=== PATIENT | female | born 1950 | race Caucasian/White ===

== ENCOUNTER → 2016-10-12 | Outpatient (REF) | payer OTHER | LOC: M LAB REF 16:50 | PROVIDERS: ATTEND Physician Assistant | DX: R30.0 Dysuria (principal) ==

== ENCOUNTER → 2016-10-14 | Outpatient (CLI) | payer OTHER ==
[2016-10-14 19:47] LABS: ALBUMIN 3.2 GM/DL (3.2-5.2); ALBUMIN/GLOBULIN RATIO 0.89 (1.00-1.93); ALKALINE PHOSPHATASE 732 U/L (45-117); ALT/SGPT 273 U/L (12-78); AMYLASE 27 U/L (25-115); ANION GAP 6 MEQ/L (8-16); AST/SGOT 132 U/L (15-37); BILIRUBIN,DIRECT 6.2 MG/DL (0.0-0.2); BILIRUBIN,TOTAL 7.3 MG/DL (0.2-1.0); BLOOD UREA NITROGEN 9 MG/DL (7-18); CALCIUM LEVEL 8.5 MG/DL (8.8-10.2); CARBON DIOXIDE LEVEL 30 MEQ/L (21-32); CHLORIDE LEVEL 100 MEQ/L (98-107); CREATININE FOR GFR 0.54 MG/DL (0.55-1.02); GLOMERULAR FILTRATION RATE > 60.0 (>45); GLUCOSE, FASTING 199 MG/DL (80-110); POTASSIUM SERUM 3.3 MEQ/L (3.5-5.1); SODIUM LEVEL 136 MEQ/L (136-145); TOTAL PROTEIN 6.8 GM/DL (6.4-8.2)
== END ==
LOC: M LAB 18:28
PROVIDERS: ATTEND Family Medicine
DX: R17 Unspecified jaundice (principal)

== ENCOUNTER → 2016-10-17 | Outpatient (REF) | payer OTHER ==
[2016-10-17 16:12] LABS: ALBUMIN 3.4 GM/DL (3.2-5.2); ALBUMIN/GLOBULIN RATIO 0.97 (1.00-1.93); BILIRUBIN,DIRECT 4.3 MG/DL (0.0-0.2); BILIRUBIN,TOTAL 5.6 MG/DL (0.2-1.0); TOTAL PROTEIN 6.9 GM/DL (6.4-8.2)
== END ==
LOC: M SFHCPLAZ 12:20
PROVIDERS: ATTEND Family Medicine
DX: E80.6 Other disorders of bilirubin metabolism (principal)

== ENCOUNTER → 2016-10-18 | Outpatient (CLI) | payer OTHER ==
--- NOTE | 2016-10-19 06:11 | REP ---
Clinical: Jaundice. Technique: Real time dunne scale ultrasound examination using curved array transducer. Findings: The liver is increased in echogenicity compatible with fatty infiltration and no obvious focal hepatic lesion identified. Pancreas is incompletely evaluated due to interposed bowel gas. Gallbladder demonstrates cholelithiasis without wall thickening or pericholecystic fluid. No biliary ductal dilatation is appreciated and the common bile duct measures 5.4 mm diameter. Right kidney is normal in reniform shape measuring 12.9 x 5.0 x 4.5 cm without hydronephrosis. No ascites. Impression: Fatty infiltration to the liver without focal hepatic lesion identified. Cholelithiasis. Signed by Richar Carter MD 10/19/2016 06:02 A
== END ==
LOC: M RAD 08:50
PROVIDERS: ATTEND Family Medicine
DX: R17 Unspecified jaundice (principal)

== ENCOUNTER → 2016-11-12 | Outpatient (CLI) | payer OTHER, MEDICARE ==
[2016-11-12 17:35] LABS: ALBUMIN 3.9 GM/DL (3.2-5.2); ALBUMIN/GLOBULIN RATIO 1.15 (1.00-1.93); ALKALINE PHOSPHATASE 205 U/L (45-117); ALT/SGPT 67 U/L (12-78); ANION GAP 6 MEQ/L (8-16); AST/SGOT 35 U/L (15-37); BLOOD UREA NITROGEN 12 MG/DL (7-18); CALCIUM LEVEL 8.8 MG/DL (8.8-10.2); CARBON DIOXIDE LEVEL 32 MEQ/L (21-32); CHLORIDE LEVEL 101 MEQ/L (98-107); CREATININE FOR GFR 0.61 MG/DL (0.55-1.02); GLOMERULAR FILTRATION RATE > 60.0 (>45); GLUCOSE, FASTING 187 MG/DL (80-110); POTASSIUM SERUM 4.8 MEQ/L (3.5-5.1); SODIUM LEVEL 139 MEQ/L (136-145); TOTAL PROTEIN 7.3 GM/DL (6.4-8.2)
== END ==
LOC: M WUC 08:35
PROVIDERS: ATTEND Surgery
DX: R11.0 Nausea (principal); K80.20 Calculus of gallbladder without cholecystitis without obstruction

== ENCOUNTER → 2016-12-26 | Outpatient (REF) | payer OTHER ==
[~2016-12-26] MED LIST: ATOR1TAB19 PO; CALC600T57 PO; DRIS50002 PO; GLIM4TAB PO; HYDR-3713 PO; LEVO25TA5 PO; METF500T13 PO; TELM1TAB PO
[2016-12-26 19:26] LABS: BASO % 0.6 % (0.0-1.0); EOS # 0.4 K/mm3 (0.0-0.50); EOS % 4.2 % (0.0-3.0); LARGE UNSTAINED CELL # 0.2 K/mm3 (0.0-0.4); LARGE UNSTAINED CELL % 1.7 % (0.0-4.0); LYMPH # 2.7 K/mm3 (1.5-4.5); LYMPH % 27.8 % (24.0-44.0); MEAN CORPUSCULAR HEMOGLOBIN 33.1 pg (27.0-33.0); MEAN CORPUSCULAR HGB CONC 34.1 g/dl (32.0-36.5); MEAN CORPUSCULAR VOLUME 97.1 fl (80.0-96.0); MONO # 0.5 K/mm3 (0.0-0.8); MONO % 4.9 % (0.0-5.0); NEUTROPHILS # 5.6 K/mm3 (1.8-7.7); NEUTROPHILS % 60.9 % (36.0-66.0); PLATELET COUNT, AUTOMATED 277 k/mm3 (150-450); RED CELL DISTRIBUTION WIDTH 13.5 % (11.5-14.5); WHITE BLOOD COUNT 9.2 K/mm3 (4.0-10.0)
[2016-12-26 21:25] LABS: ALBUMIN 3.8 GM/DL (3.2-5.2); ALBUMIN/GLOBULIN RATIO 0.97 (1.00-1.93); ALKALINE PHOSPHATASE 148 U/L (45-117); ALT/SGPT 48 U/L (12-78); AMYLASE 39 U/L (25-115); ANION GAP 6 MEQ/L (8-16); AST/SGOT 28 U/L (15-37); BILIRUBIN,TOTAL 0.5 MG/DL (0.2-1.0); BLOOD UREA NITROGEN 12 MG/DL (7-18); CALCIUM LEVEL 9.3 MG/DL (8.8-10.2); CARBON DIOXIDE LEVEL 32 MEQ/L (21-32); CHLORIDE LEVEL 97 MEQ/L (98-107); CREATININE FOR GFR 0.66 MG/DL (0.55-1.02); FREE T4 0.82 NG/DL (0.76-1.46); GLOMERULAR FILTRATION RATE > 60.0 (>45); GLUCOSE, FASTING 374 MG/DL (80-110); POTASSIUM SERUM 4.1 MEQ/L (3.5-5.1); SODIUM LEVEL 135 MEQ/L (136-145); TOTAL PROTEIN 7.7 GM/DL (6.4-8.2)
== END ==
LOC: M SFHCPLAZ 15:23
PROVIDERS: ATTEND Family Medicine
DX: E11.9 Type 2 diabetes mellitus without complications (principal); I10 Essential (primary) hypertension; E03.9 Hypothyroidism, unspecified

== ENCOUNTER → 2017-01-18 | Outpatient (CLI) | payer OTHER ==
--- NOTE | 2017-01-18 17:47 | ECGEPIP ---
Stationary ECG Study [facility] Test Date: 2017-01-18 Pat Name: VIKY ESPINO Department: Room: - Gender: F Lead Process Engineer: : [id number] Requested By: MUNA Castañeda Order Number: [id number] Reading MD: Vijay Lay Measurements Intervals [place] Rate: 72 P: 52 VT: 180 QRS: 9 QRSD: 98 T: 46 QT: 394 QTc: 433 Interpretive Statements SINUS RHYTHM Comparison tracing not on file Electronically Signed On 01-18-2017 17:46:52 EDT by Vijay Lay
== END ==
LOC: M EKG 15:35
PROVIDERS: ATTEND Anesthesiology
DX: Z01.818 Encounter for other preprocedural examination (principal)

== ENCOUNTER 2017-01-24 06:09 | Day surgery (SDC) | payer MEDICARE, OTHER ==
[~2017-01-24] VITALS: Ht 157.5 cm; Wt 88.5 kg
[2017-01-24] MEDS ORDERED: LR 1,000 ML IV SCH ×3 (06:15→09:45)
[2017-01-24] MEDS ORDERED: ceFAZolin SOD 1 GM in D5W MINI-BAG PLUS 50 ML IV ONE (06:15)
[2017-01-24] MEDS ORDERED: LIDOCAINE 1% SDV 5 ML VIAL SQ ONE (06:15)
[2017-01-24] MEDS ORDERED: BUPIVACAINE/EPIN 0.25% 30 ML VIAL As Ordered ONE ×2 (07:18→08:03)
[2017-01-24] MEDS ORDERED: MIDAZOLAM INJ 2 MG/2 ML VIAL (J2250) As Ordered ONE (07:56)
[2017-01-24] MEDS ORDERED: fentaNYL 100 MCG/2 ML INJECTION (J3010) As Ordered ONE (07:56)
[2017-01-24] MEDS ORDERED: PROPOFOL 500 MG/50 ML VIAL As Ordered ONE (07:56)
[2017-01-24] MEDS ORDERED: NEOSTIGMINE 1MG/ML 5 ML SYRINGE (J2710) As Ordered ONE (08:01)
[2017-01-24] MEDS ORDERED: ONDANSETRON 4MG/2ML VIAL (J2405) As Ordered ONE (08:01)
[2017-01-24] MEDS ORDERED: METOCLOPRAMIDE INJ 10MG/2ML VIAL (J2765) As Ordered ONE (08:01)
[2017-01-24] MEDS ORDERED: KETOROLAC 60 MG/2 ML VIAL (J1885) As Ordered ONE (08:01)
[2017-01-24] MEDS ORDERED: dexameTHASONE 4 MG/ML 1ML VIAL (J1100) As Ordered ONE (08:01)
[2017-01-24] MEDS ORDERED: ROCURONIUM BROMIDE 50 MG/5 ML VIAL/SYRINGE As Ordered ONE (08:01)
[2017-01-24] MEDS ORDERED: LIDOCAINE 2% INJ 100 MG/5 ML SDV (FOR ANES.) As Ordered ONE (08:01)
[2017-01-24] MEDS ORDERED: GLYCOPYRROLATE INJ 0.2 MG/ML 2 ML VIAL As Ordered ONE (08:02)
[2017-01-24] MEDS ORDERED: PHENYLephrine HCL 500 MCG/5 ML (100MCG/ML) SYRINGE (J2370) As Ordered ONE (08:09)
[2017-01-24] MEDS ORDERED: ePHEDrine SULFATE 25 MG/5 ML(5MG/ML) SYRINGE As Ordered ONE (08:09)
[2017-01-24] MEDS ORDERED: HYDROmorphone HCL 2 MG/ML 1ML VIAL (J1170) As Ordered ONE (08:51)
[2017-01-24] MEDS ORDERED: PERCOCET 5MG/325MG TAB PO PRN (09:45)
[2017-01-24] MEDS ORDERED: HYDROmorphone HCL 1 MG/ML SYRINGE (J1170) IV PRN (09:45)
[2017-01-24] MEDS ORDERED: NORCO, ANEXSIA 5/325MG TABLET (HYDROcodone/ACETAMINOPHEN) PO PRN (09:45)
[2017-01-24] MEDS ORDERED: MORPHINE 2 MG/ML 1ML SYRINGE IV PRN (09:45)
[2017-01-24] MEDS ORDERED: fentaNYL 100 MCG/2 ML INJECTION (J3010) IV PRN (09:45)
[2017-01-24] MEDS ORDERED: ONDANSETRON 4MG/2ML VIAL (J2405) IV PRN ×2 (09:45)
--- NOTE | 2017-01-24 09:53 | RO ---
DATE OF PROCEDURE: 01/24/2017 PREOPERATIVE DIAGNOSIS: Symptomatic gallstones. POSTOPERATIVE DIAGNOSIS: Symptomatic gallstones. PROCEDURE: Laparoscopic cholecystectomy. SURGEON: Dr. Guicho Thomson [employer] DEVELOPMENT: ANESTHESIA: General endotracheal anesthesia. ESTIMATED BLOOD LOSS: Minimal. FLUIDS: Crystalloid. BRIEF PROCEDURE SUMMARY: The patient was brought to the operating room and was given general anesthesia. After adequate anesthesia and preoperative antibiotics were given, the patient was prepped and draped in the usual sterile fashion. Next, a supraumbilical incision was made with skin knife. Blunt dissection was carried down to fascia. The fascia was grasped with Cheo clamps, elevated and a Veress needle placed into the abdominal cavity and insufflated to 15 mm of pressure. A dilating 10 mm trocar was placed at this time and under direct visualization an epigastric and two lateral trocars were placed. Next, the gallbladder was grasped and retracted superiorly. There were numerous adhesions of the omentum as well as the duodenum up against the neck of the gallbladder which were taken down with hook cautery and some minimal blunt dissection. The neck of the gallbladder was cleared of peritoneum on the anterior service and the lateral surface and dissection continued along the lateral border of the gallbladder, then upon the medial aspect where the cystic artery was well visualized surrounded. A window behind the neck of the gallbladder was created using a combination of blunt and electrocautery dissection on the loose areolar tissue there. Once the cystic duct was well visualized and a critical view of safety was obtained, the cystic duct was clipped proximally and distally times two and transected. The gallbladder was then slowly removed from the gallbladder bed, clipping the cystic artery on the way and transecting this. The gallbladder was removed in its entirety, placed in an EndoCatch bag and brought up to the umbilicus, which had multiple stones within the gallbladder itself, and the gallbladder needed to be opened to crush some of these stones, but despite doing this, the incision at the umbilicus had to be increased enough to allow for a relatively large stone to be removed. Once this was removed, the incision was copiously irrigated and the incision was closed with #0 Vicryl in the fascial layer and all incisions were closed with #4-0 Vicryl. Steri-Strips and a dry sterile dressing was applied. The patient was awakened, extubated and brought to the recovery room awake, alert and hemodynamically stable. Sponge and needle counts correct times two.
[2017-01-24 12:05] VITALS: BP 145/65
== END 2017-01-24 12:45 | disposition home or self-care (01) ==
LOC: M SDC 06:09
PROVIDERS: ATTEND Surgery
DX: K80.20 Calculus of gallbladder without cholecystitis without obstruction (principal); E11.9 Type 2 diabetes mellitus without complications; I10 Essential (primary) hypertension; E78.5 Hyperlipidemia, unspecified; E03.9 Hypothyroidism, unspecified; E04.2 Nontoxic multinodular goiter; K57.32 Diverticulitis of large intestine without perforation or abscess without bleeding; Z79.899 Other long term (current) drug therapy
CPT/HCPCS: 47562; 88304; J0690; J1100; J1170; J1885; J2250; J2370; J2405; J2710; J2765; J3010

== ENCOUNTER → 2017-04-18 | Outpatient (CLI) | payer MEDICARE, OTHER ==
--- NOTE | 2017-04-18 09:49 | REP ---
BILATERAL SCREENING DIGITAL MAMMOGRAM: There are no palpable abnormalities or other breast complaints. The patient states that she/he has not had a clinical breast exam in over a year. Comparisons are 11/15/2011, 07/17/2012, 04/08/2014 and 02/10/2016. The breast parenchyma is moderately dense, unchanged. There are two biopsy marking clips in the left breast, unchanged. There is a microcalcific cluster in the left breast, far posterolaterally. I suspect that the number of calcifications within this cluster has increased over the series of films. There is a microcalcific cluster in the left breast superiorly slightly medial to midline and I suspect the number of calcifications has increased over the series of films. There are no focal suspicious findings in the right breast. IMPRESSION: BIRADS category 0, incomplete. Additional imaging evaluation is needed. The patient should return for magnification views of the microcalcifications in the left breast. The decision for additional views, ultrasound or MRI will be based on these initial follow-up views. This mammogram was interpreted with the aid of an FDA-approved computer-aided detection system. A. Negative x-ray reports should not delay biopsy if a dominant or clinically suspicious mass is present. B. Not all breast s cancers are identified by x-ray. C. Adenosis and dense breasts may obscure an underlying neoplasm. The patient letter M0. Signed by Otto Kendrick MD 04/18/2017 11:41 A
== END ==
LOC: M RAD 08:00
PROVIDERS: ATTEND Family Medicine
DX: Z12.31 Encounter for screening mammogram for malignant neoplasm of breast (principal)

== ENCOUNTER → 2017-05-10 | Outpatient (REF) | payer MEDICARE, OTHER ==
[2017-05-10 12:35] LABS: ALBUMIN 3.9 GM/DL (3.2-5.2); ALBUMIN/GLOBULIN RATIO 1.11 (1.00-1.93); ALKALINE PHOSPHATASE 126 U/L (45-117); ALT/SGPT 32 U/L (12-78); ANION GAP 3 MEQ/L (8-16); AST/SGOT 16 U/L (7-37); BILIRUBIN,TOTAL 0.8 MG/DL (0.2-1.0); BLOOD UREA NITROGEN 11 MG/DL (7-18); CALCIUM LEVEL 9.2 MG/DL (8.8-10.2); CARBON DIOXIDE LEVEL 34 MEQ/L (21-32); CHLORIDE LEVEL 102 MEQ/L (98-107); GLOMERULAR FILTRATION RATE > 60.0 (>45); GLUCOSE, FASTING 155 MG/DL (80-110); POTASSIUM SERUM 4.8 MEQ/L (3.5-5.1); SODIUM LEVEL 139 MEQ/L (136-145); TOTAL PROTEIN 7.4 GM/DL (6.4-8.2)
== END ==
LOC: M SFHCPLAZ 09:47
PROVIDERS: ATTEND Family Medicine
DX: E78.2 Mixed hyperlipidemia (principal)

== ENCOUNTER → 2017-07-04 | Outpatient (REF) | payer MEDICARE, OTHER ==
[2017-07-04 12:50] LABS: TOTAL 25(OH) VITAMIN D 65.8 NG/ML (30.0-100.0); VITAMIN B12 LEVEL 385 PG/ML (247-911)
[2017-07-04 12:51] LABS: PTH INTACT 64.4 PG/ML (14.0-72.0)
[2017-07-04 12:59] LABS: C REACTIVE PROTEIN QUANTITATIV 1.56 MG/DL (0.00-0.30); CHOLESTEROL LEVEL 201 MG/DL (<200); CHOLESTEROL RISK RATIO 3.241 (<5); CPK CREATINE PHOSPHOKINASE 63 U/L (26-192); HDL CHOLESTEROL 62 MG/DL (>40); LDL CHOLESTEROL 108.4 MG/DL (<100); NON-HDL-C 139 MG/DL; TRIGLYCERIDES LEVEL 153 MG/DL (<150)
[2017-07-04 13:24] LABS: ESTIMATED AVERAGE GLUCOSE 174 MG/DL (60-110); HEMOGLOBIN A1c 7.7 %
== END ==
LOC: M SFHCPLAZ 09:15
DX: E78.2 Mixed hyperlipidemia (principal); E11.9 Type 2 diabetes mellitus without complications; E55.9 Vitamin D deficiency, unspecified
CPT/HCPCS: 82550

== ENCOUNTER → 2017-07-06 | Outpatient (REF) | payer MEDICARE, OTHER ==
[2017-07-06 18:44] LABS: BASO % 0.4 % (0.0-1.0); EOS # 0.4 10^3/uL (0.0-0.50); EOS % 3.8 % (0.0-3.0); HEMATOCRIT 40.9 % (36.0-47.0); HEMOGLOBIN 13.7 g/dl (12.0-16.0); IMMATURE GRANULOCYTE % 0.3 % (0-0); LYMPH # 3.3 10^3/uL (1.5-4.5); LYMPH % 33.8 % (24.0-44.0); MEAN CORPUSCULAR HEMOGLOBIN 31.7 pg (27.0-33.0); MEAN CORPUSCULAR HGB CONC 33.5 g/dl (32.0-36.5); MEAN CORPUSCULAR VOLUME 94.7 fl (80.0-96.0); MONO # 0.7 10^3/uL (0.0-0.8); MONO % 7.4 % (0.0-5.0); NEUTROPHILS # 5.3 10^3/uL (1.8-7.7); NEUTROPHILS % 54.3 % (36.0-66.0); PLATELET COUNT, AUTOMATED 306 10^3/uL (150-450); RED BLOOD COUNT 4.32 10^6/uL (4.00-5.40); RED CELL DISTRIBUTION WIDTH 13.1 % (11.5-14.5); WHITE BLOOD COUNT 9.7 10^3/uL (4.0-10.0)
[2017-07-06 19:03] LABS: INR 0.95; PROTHROMBIN TIME 12.8 SECONDS (12.4-14.5)
[2017-07-06 19:04] LABS: PARTIAL THROMBOPLASTIN TIME 40.2 SECONDS (26.8-37.9)
[2017-07-06 19:07] LABS: ALBUMIN 4.1 GM/DL (3.2-5.2); ALBUMIN/GLOBULIN RATIO 1.11 (1.00-1.93); ALKALINE PHOSPHATASE 134 U/L (45-117); ALT/SGPT 29 U/L (12-78); ANION GAP 7 MEQ/L (8-16); AST/SGOT 15 U/L (7-37); BILIRUBIN,TOTAL 0.5 MG/DL (0.2-1.0); BLOOD UREA NITROGEN 14 MG/DL (7-18); CALCIUM LEVEL 9.5 MG/DL (8.8-10.2); CARBON DIOXIDE LEVEL 33 MEQ/L (21-32); CHLORIDE LEVEL 101 MEQ/L (98-107); CREATININE FOR GFR 0.55 MG/DL (0.55-1.02); FREE T4 0.87 NG/DL (0.76-1.46); GLOMERULAR FILTRATION RATE > 60.0 (>45); GLUCOSE, FASTING 102 MG/DL (80-110); MAGNESIUM LEVEL 2.1 MG/DL (1.8-2.4); POTASSIUM SERUM 4.2 MEQ/L (3.5-5.1); SODIUM LEVEL 141 MEQ/L (136-145); TOTAL PROTEIN 7.8 GM/DL (6.4-8.2)
== END ==
LOC: M SFHCPLAZ 15:22
DX: E11.9 Type 2 diabetes mellitus without complications (principal); E03.9 Hypothyroidism, unspecified; I10 Essential (primary) hypertension; K76.0 Fatty (change of) liver, not elsewhere classified
CPT/HCPCS: 83735

== ENCOUNTER → 2017-07-25 | Outpatient (REF) | payer MEDICARE, OTHER ==
[2017-07-25 13:57] LABS: INR 0.99; PROTHROMBIN TIME 13.2 SECONDS (12.4-14.5)
[2017-07-27 00:07] LABS: CA 27.29 24.9 U/mL (0.0-38.6)
== END ==
LOC: M LAB REF 12:48
DX: C50.919 Malignant neoplasm of unspecified site of unspecified female breast (principal); Z79.01 Long term (current) use of anticoagulants
CPT/HCPCS: 86300

== ENCOUNTER → 2017-08-08 | Outpatient (CLI) | payer MEDICARE, OTHER ==
[~2017-08-08] MED LIST changes: -ATOR1TAB19 PO; -CALC600T57 PO; -DRIS50002 PO; -GLIM4TAB PO; -HYDR-3713 PO; +ISOVUE-370 76% 100ML VIAL (Q9967) As Ordered; -LEVO25TA5 PO; -METF500T13 PO; -TELM1TAB PO
== END ==
LOC: M RAD 08:53
DX: C50.411 Malignant neoplasm of upper-outer quadrant of right female breast (principal); E07.9 Disorder of thyroid, unspecified; N28.1 Cyst of kidney, acquired; Z98.82 Breast implant status
CPT/HCPCS: Q9967

== ENCOUNTER → 2017-08-10 | Outpatient (CLI) | payer MEDICARE, OTHER | LOC: M ONCR 09:13 | DX: C50.911 Malignant neoplasm of unspecified site of right female breast (principal) | CPT/HCPCS: G0463 ==

== ENCOUNTER 2017-09-05 14:00 | Outpatient (RCR) | payer MEDICARE, OTHER | END 2017-09-23 | LOC: M ONCR 14:00 | DX: C50.411 Malignant neoplasm of upper-outer quadrant of right female breast (principal) | CPT/HCPCS: 77300 ==

== ENCOUNTER → 2017-09-05 | Outpatient (CLI) | payer MEDICARE, OTHER ==
[2017-09-05 15:08] LABS: HEMATOCRIT 37.9 % (36.0-47.0); HEMOGLOBIN 12.5 g/dl (12.0-16.0); MEAN CORPUSCULAR HEMOGLOBIN 30.6 pg (27.0-33.0); MEAN CORPUSCULAR VOLUME 92.7 fl (80.0-96.0); PLATELET COUNT, AUTOMATED 365 10^3/uL (150-450); RED BLOOD COUNT 4.09 10^6/uL (4.00-5.40); RED CELL DISTRIBUTION WIDTH 13.3 % (11.5-14.5); WHITE BLOOD COUNT 9.7 10^3/uL (4.0-10.0)
== END ==
LOC: M RAD 14:05
DX: C50.911 Malignant neoplasm of unspecified site of right female breast (principal)
CPT/HCPCS: 85027

== ENCOUNTER → 2017-09-12 | Outpatient (CLI) | payer MEDICARE, OTHER | LOC: M WHC 08:59 | DX: C50.919 Malignant neoplasm of unspecified site of unspecified female breast (principal); M85.852 Other specified disorders of bone density and structure, left thigh; M85.851 Other specified disorders of bone density and structure, right thigh; M85.88 Other specified disorders of bone density and structure, other site | CPT/HCPCS: 77080 ==

== ENCOUNTER 2017-09-25 11:43 | Outpatient (RCR) | payer MEDICARE, OTHER | END 2017-10-23 | LOC: M ONCR 11:43 | DX: C50.411 Malignant neoplasm of upper-outer quadrant of right female breast (principal) | CPT/HCPCS: 77336 ==

== ENCOUNTER 2017-10-24 11:19 | Outpatient (RCR) | payer MEDICARE, OTHER | END 2017-11-23 | LOC: M ONCR 11:19 | DX: C50.411 Malignant neoplasm of upper-outer quadrant of right female breast (principal) | CPT/HCPCS: 77336 ==

== ENCOUNTER → 2017-12-19 | Outpatient (CLI) | payer MEDICARE, OTHER | LOC: M ONCR 09:01 | DX: Z08 Encounter for follow-up examination after completed treatment for malignant neoplasm (principal); Z85.3 Personal history of malignant neoplasm of breast; Z92.3 Personal history of irradiation | CPT/HCPCS: G0463 ==

== ENCOUNTER → 2018-01-09 | Outpatient (REF) | payer MEDICARE, OTHER ==
[2018-01-09 11:58] LABS: BASO % 0.5 % (0.0-1.0); EOS # 0.3 10^3/uL (0.0-0.50); EOS % 4.8 % (0.0-3.0); HEMOGLOBIN 12.9 g/dl (12.0-15.5); IMMATURE GRANULOCYTE % 0.3 % (0-3.0); LYMPH % 14.5 % (24.0-44.0); MEAN CORPUSCULAR HEMOGLOBIN 30.9 pg (27.0-33.0); MEAN CORPUSCULAR HGB CONC 33.1 g/dl (32.0-36.5); MEAN CORPUSCULAR VOLUME 93.3 fl (80.0-96.0); MONO # 0.5 10^3/uL (0.0-0.8); NEUTROPHILS # 4.7 10^3/uL (1.8-7.7); NEUTROPHILS % 71.9 % (36.0-66.0); PLATELET COUNT, AUTOMATED 287 10^3/uL (150-450); RED BLOOD COUNT 4.18 10^6/uL (4.00-5.40); RED CELL DISTRIBUTION WIDTH 13.7 % (11.5-14.5); WHITE BLOOD COUNT 6.6 10^3/uL (4.0-10.0)
[2018-01-09 12:44] LABS: ALBUMIN 3.8 GM/DL (3.2-5.2); ALKALINE PHOSPHATASE 164 U/L (45-117); ALT/SGPT 44 U/L (12-78); ANION GAP 10 MEQ/L (8-16); AST/SGOT 30 U/L (7-37); BILIRUBIN,TOTAL 0.8 MG/DL (0.2-1.0); BLOOD UREA NITROGEN 14 MG/DL (7-18); CALCIUM LEVEL 9.2 MG/DL (8.8-10.2); CARBON DIOXIDE LEVEL 30 MEQ/L (21-32); CHLORIDE LEVEL 100 MEQ/L (98-107); CREATININE FOR GFR 0.66 MG/DL (0.55-1.30); FREE T4 0.87 NG/DL (0.76-1.46); GLOMERULAR FILTRATION RATE > 60.0 (>45); GLUCOSE, FASTING 207 MG/DL (70-100); MAGNESIUM LEVEL 1.7 MG/DL (1.8-2.4); POTASSIUM SERUM 4.3 MEQ/L (3.5-5.1); SODIUM LEVEL 140 MEQ/L (136-145); TOTAL PROTEIN 7.6 GM/DL (6.4-8.2)
[2018-01-09 12:53] LABS: TOTAL 25(OH) VITAMIN D 67.3 NG/ML (30.0-100.0)
[2018-01-09 12:54] LABS: VITAMIN B12 LEVEL 329 PG/ML (247-911)
[2018-01-09 13:27] LABS: ESTIMATED AVERAGE GLUCOSE 183 MG/DL (60-110)
== END ==
LOC: M SFHCPLAZ 10:41
DX: E11.9 Type 2 diabetes mellitus without complications (principal); E03.9 Hypothyroidism, unspecified; I10 Essential (primary) hypertension; D75.89 Other specified diseases of blood and blood-forming organs; E55.9 Vitamin D deficiency, unspecified
CPT/HCPCS: 83735

== ENCOUNTER → 2018-01-11 | Outpatient (CLI) | payer MEDICARE, OTHER ==
[~2018-01-11] MED LIST changes: +GASTROGRAFIN SOLUTION 30ML (Q9963) As Ordered
== END ==
LOC: M RAD 12:26
DX: K43.2 Incisional hernia without obstruction or gangrene (principal); E04.2 Nontoxic multinodular goiter; K43.9 Ventral hernia without obstruction or gangrene; K57.90 Diverticulosis of intestine, part unspecified, without perforation or abscess without bleeding
CPT/HCPCS: Q9963

== ENCOUNTER → 2018-01-12 | Outpatient (CLI) | payer MEDICARE, OTHER | LOC: M RAD 10:35 | DX: K11.21 Acute sialoadenitis (principal) | CPT/HCPCS: 76536 ==

== ENCOUNTER → 2018-01-17 | Outpatient (CLI) | payer MEDICARE, OTHER ==
[~2018-01-17] MED LIST changes: -GASTROGRAFIN SOLUTION 30ML (Q9963) As Ordered
== END ==
LOC: M RAD 14:08
DX: R91.8 Other nonspecific abnormal finding of lung field (principal)
CPT/HCPCS: Q9967

== ENCOUNTER → 2018-02-19 | Outpatient (REF) | payer MEDICARE, OTHER ==
[2018-02-19 16:01] LABS: BASO % 0.5 % (0.0-1.0); EOS # 0.2 10^3/uL (0.0-0.50); EOS % 2.8 % (0.0-3.0); IMMATURE GRANULOCYTE % 0.4 % (0-3.0); LYMPH # 1.2 10^3/uL (1.5-4.5); LYMPH % 14.2 % (24.0-44.0); MEAN CORPUSCULAR HEMOGLOBIN 30.7 pg (27.0-33.0); MEAN CORPUSCULAR HGB CONC 33.3 g/dl (32.0-36.5); MEAN CORPUSCULAR VOLUME 92.2 fl (80.0-96.0); MONO # 0.5 10^3/uL (0.0-0.8); NEUTROPHILS # 6.5 10^3/uL (1.8-7.7); NEUTROPHILS % 76.1 % (36.0-66.0); PLATELET COUNT, AUTOMATED 313 10^3/uL (150-450); RED BLOOD COUNT 4.23 10^6/uL (4.00-5.40); RED CELL DISTRIBUTION WIDTH 13.7 % (11.5-14.5); WHITE BLOOD COUNT 8.5 10^3/uL (4.0-10.0)
[2018-02-19 16:15] LABS: ALBUMIN 3.8 GM/DL (3.2-5.2); ALBUMIN/GLOBULIN RATIO 0.97 (1.00-1.93); ALKALINE PHOSPHATASE 143 U/L (45-117); ALT/SGPT 42 U/L (12-78); ANION GAP 10 MEQ/L (8-16); AST/SGOT 21 U/L (7-37); BILIRUBIN,TOTAL 0.5 MG/DL (0.2-1.0); BLOOD UREA NITROGEN 12 MG/DL (7-18); C REACTIVE PROTEIN QUANTITATIV 2.09 MG/DL (0.00-0.30); CALCIUM LEVEL 9.1 MG/DL (8.8-10.2); CARBON DIOXIDE LEVEL 25 MEQ/L (21-32); CHLORIDE LEVEL 102 MEQ/L (98-107); CREATININE FOR GFR 0.61 MG/DL (0.55-1.30); GLOMERULAR FILTRATION RATE > 60.0 (>45); GLUCOSE, FASTING 218 MG/DL (70-100); SODIUM LEVEL 137 MEQ/L (136-145); TOTAL PROTEIN 7.7 GM/DL (6.4-8.2); URIC ACID 4.3 MG/DL (2.6-6.0)
[2018-02-19 19:03] LABS: ERYTHROCYTE SEDIMENTATION RATE 63 mm/hr (0-30)
[2018-02-22 00:10] LABS: ANTINUCLEAR ANTIBODIES DIRECT Negative (Negative)
[2018-02-22 00:10] LABS: CYCLIC CITRULLINATED PEPTIDE 16 units (0-19)
== END ==
LOC: M SFHCPLAZ 12:56
DX: M10.041 Idiopathic gout, right hand (principal)
CPT/HCPCS: 84550

== ENCOUNTER → 2018-03-06 | Outpatient (REF) | payer MEDICARE, OTHER ==
[2018-03-06 11:56] LABS: BASO # 0.1 10^3/uL (0.0-0.2); BASO % 0.8 % (0.0-1.0); EOS # 0.3 10^3/uL (0.0-0.50); EOS % 5.2 % (0.0-3.0); HEMATOCRIT 40.5 % (36.0-47.0); HEMOGLOBIN 13.3 g/dl (12.0-15.5); IMMATURE GRANULOCYTE % 0.3 % (0-3.0); LYMPH # 1.2 10^3/uL (1.5-4.5); MEAN CORPUSCULAR HEMOGLOBIN 30.7 pg (27.0-33.0); MEAN CORPUSCULAR HGB CONC 32.8 g/dl (32.0-36.5); MEAN CORPUSCULAR VOLUME 93.5 fl (80.0-96.0); MONO # 0.5 10^3/uL (0.0-0.8); MONO % 7.1 % (0.0-5.0); NEUTROPHILS # 4.3 10^3/uL (1.8-7.7); NEUTROPHILS % 67.6 % (36.0-66.0); PLATELET COUNT, AUTOMATED 273 10^3/uL (150-450); RED BLOOD COUNT 4.33 10^6/uL (4.00-5.40); RED CELL DISTRIBUTION WIDTH 13.7 % (11.5-14.5); WHITE BLOOD COUNT 6.3 10^3/uL (4.0-10.0)
[2018-03-06 12:01] LABS: HEMATOCRIT 40.5 % (36.0-47.0)
[2018-03-06 12:32] LABS: ESTIMATED AVERAGE GLUCOSE 177 MG/DL (60-110); HEMOGLOBIN A1c 7.8 %
[2018-03-06 12:58] LABS: ALKALINE PHOSPHATASE 134 U/L (45-117); ALT/SGPT 60 U/L (12-78); ANION GAP 6 MEQ/L (8-16); AST/SGOT 33 U/L (7-37); BILIRUBIN,TOTAL 0.6 MG/DL (0.2-1.0); BLOOD UREA NITROGEN 13 MG/DL (7-18); C REACTIVE PROTEIN QUANTITATIV 1.27 MG/DL (0.00-0.30); CALCIUM LEVEL 9.6 MG/DL (8.8-10.2); CARBON DIOXIDE LEVEL 31 MEQ/L (21-32); CHLORIDE LEVEL 103 MEQ/L (98-107); CREATININE FOR GFR 0.59 MG/DL (0.55-1.30); GLOMERULAR FILTRATION RATE > 60.0 (>45); GLUCOSE, FASTING 133 MG/DL (70-100); PHOSPHORUS LEVEL 4.2 MG/DL (2.5-4.9); POTASSIUM SERUM 4.5 MEQ/L (3.5-5.1); PTH INTACT 44.2 PG/ML (18.5-88.0); SODIUM LEVEL 140 MEQ/L (136-145); TOTAL 25(OH) VITAMIN D 76.8 NG/ML (30.0-100.0); TOTAL PROTEIN 7.9 GM/DL (6.4-8.2)
[2018-03-06 13:52] LABS: ALBUMIN/GLOBULIN RATIO 1.03 (1.00-1.93)
[2018-03-06 15:55] LABS: PRETREATED FOLATE FOR RBCFOL 13.9 NG/ML; RBC FOLATE 720.7 NG/ML (280-791)
[2018-03-08 00:08] LABS: Lyme Disease IgG/IgM Antibodie <0.91 ISR (0.00-0.90); Lyme Disease IgM Ab Quantitati <0.80 index (0.00-0.79)
[2018-03-09 00:07] LABS: CYCLIC CITRULLINATED PEPTIDE 10 units (0-19)
== END ==
LOC: M SFHCPLAZ 08:23
DX: L03.011 Cellulitis of right finger (principal); E55.9 Vitamin D deficiency, unspecified; E78.2 Mixed hyperlipidemia; E11.9 Type 2 diabetes mellitus without complications; E53.8 Deficiency of other specified B group vitamins
CPT/HCPCS: 84443

== ENCOUNTER → 2018-05-08 | Outpatient (REF) | payer MEDICARE, OTHER ==
[2018-05-08 12:50] LABS: APPEARANCE, URINE CLEAR (CLEAR); BACTERIA, URINE AUTO NEGATIVE (NEGATIVE); BILIRUBIN, URINE AUTO NEGATIVE (NEGATIVE); BLOOD, URINE BLOOD NEGATIVE (NEGATIVE); COLOR, URINE YELLOW (YELLOW); GLUCOSE, URINE (UA) AUTO NEGATIVE (NEGATIVE); KETONE, URINE AUTO NEGATIVE (NEGATIVE); LEUKOCYTE ESTERASE, URINE AUTO NEGATIVE (NEGATIVE); MUCUS, URINE SMALL (NEGATIVE); NITRITE, URINE AUTO NEGATIVE (NEGATIVE); PROTEIN, URINE AUTO NEGATIVE (NEGATIVE); RBC, URINE AUTO 3 /HPF (0-3); SPECIFIC GRAVITY URINE AUTO 1.013 (1.002-1.035); SQUAMOUS EPITHELIAL CELL UR AU 0 /HPF (0-6); UROBILINOGEN, URINE AUTO 0.2 mg/dL (0.0-2.0); WBC, URINE AUTO 1 /HPF (0-3)
[2018-05-08 13:20] LABS: CREATININE, URINE 51.7 MG/DL; MAU/CREAT RATIO 106.3 MCG/MG (0.0-30.0)
[2018-05-08 13:32] LABS: C REACTIVE PROTEIN QUANTITATIV 1.84 MG/DL (0.00-0.30); CHOLESTEROL LEVEL 182 MG/DL (<200); CHOLESTEROL RISK RATIO 3.033 (<5); CPK CREATINE PHOSPHOKINASE 63 U/L (26-192); FREE T4 0.78 NG/DL (0.76-1.46); HDL CHOLESTEROL 60 MG/DL (>40); LDL CHOLESTEROL 90 MG/DL (<100); NON-HDL-C 122 MG/DL; TRIGLYCERIDES LEVEL 160 MG/DL (<150)
[2018-05-08 13:45] LABS: ESTIMATED AVERAGE GLUCOSE 186 MG/DL (60-110); HEMOGLOBIN A1c 8.1 %
== END ==
LOC: M SFHCPLAZ 08:35
DX: E11.9 Type 2 diabetes mellitus without complications (principal)
CPT/HCPCS: 82550

== ENCOUNTER → 2018-06-13 | Outpatient (CLI) | payer MEDICARE, OTHER ==
[~2018-06-13] MED LIST changes: +ATOR1TAB19 PO; +CALC600T57 PO; +CELE100C PO; +DRIS50003 PO; +GLIM4TAB PO; +HYDR-3713 PO; -ISOVUE-370 76% 100ML VIAL (Q9967) As Ordered; +LEVO25TA5 PO; +METF500T13 PO; +METF750T PO; +TELM1TAB PO
--- NOTE | 2018-06-14 10:43 | RADONC ---
RADIATION ONCOLOGY FOLLOWUP NOTE DATE: 06/13/2018 CHART NUMBER: [id number] DIAGNOSIS: Right breast cancer. STAGE: I B, [id number], grade 2, ER positive, VT positive, HER2/guevara negative. ECOG PERFORMANCE STATUS: Zero. FOLLOWUP NOTE: Ms. Gonzalez is very pleasant, 68-year-old white female with the diagnosis of a stage I B, [id number], moderately differentiated invasive lobular carcinoma of the right breast who is presenting to us today for routine followup visit 7 months post completion of external beam radiation therapy. The patient presents today reporting that she is doing quite well with no complaints at this time related to her radiation therapy or disease. She has no chest wall or bone pain. REVIEW OF SYSTEMS: The patient's review of systems is noncontributory. Denies nausea, vomiting, fevers, chills, night sweats, diplopia, headaches, anxiety or depression, anorexia, weight loss, visual disturbances, chest pain, urinary or bowel difficulties, bone pain, or neurological problems. PHYSICAL EXAMINATION: The patient is a well-developed, well-nourished, 68-year-old white female, in no acute distress. HEENT exam is normocephalic, atraumatic. Extraocular movements are intact. There is no palpable cervical, supraclavicular, infraclavicular, axillary, or inguinal lymphadenopathy present. Lungs are clear to auscultation and percussion. Heart has a regular rate and rhythm. Abdomen is benign with no hepatosplenomegaly, masses, or tenderness. Chest wall examination reveals bilateral mastectomy scars present. Her expanders are in place. There is no evidence of nodularity ulceration or recurrent disease. Skeletal examination reveals no tenderness to pressure or percussion of the bony skeleton. Extremities reveal no clubbing, cyanosis, or edema. Neurologic exam is grossly intact, as is the remainder of the physical examination. ASSESSMENT: The patient is clinically ANISH at this time. She is being followed and managed closely by her medical oncologists. She is scheduled for breast reconstruction in June and she is being followed by her surgeons and plastic surgeons. In light of this, I have discharged her from our followup except on a p.r.n. basis. cc: MD Gretel Rizvi MD Geoffrey Mikita, MD Ryan Tyler, MD
== END ==
LOC: M ONCR 09:31
PROVIDERS: ATTEND Radiology Radiation Oncology
DX: C50.911 Malignant neoplasm of unspecified site of right female breast (principal)

== ENCOUNTER → 2018-09-24 | Outpatient (REF) | payer MEDICARE, OTHER ==
[~2018-09-24] MED LIST changes: +JANU100T PO; +LETR2.5T2 PO
[2018-09-24 11:01] LABS: APPEARANCE, URINE CLEAR (CLEAR); BACTERIA, URINE AUTO NEGATIVE (NEGATIVE); BILIRUBIN, URINE AUTO NEGATIVE (NEGATIVE); BLOOD, URINE BLOOD 1+ (NEGATIVE); COLOR, URINE YELLOW (YELLOW); GLUCOSE, URINE (UA) AUTO NEGATIVE (NEGATIVE); KETONE, URINE AUTO NEGATIVE (NEGATIVE); LEUKOCYTE ESTERASE, URINE AUTO 3+ (NEGATIVE); NITRITE, URINE AUTO NEGATIVE (NEGATIVE); PROTEIN, URINE AUTO NEGATIVE (NEGATIVE); RBC, URINE AUTO 4 /HPF (0-3); SPECIFIC GRAVITY URINE AUTO 1.014 (1.002-1.035); SQUAMOUS EPITHELIAL CELL UR AU 0 /HPF (0-6); UROBILINOGEN, URINE AUTO 0.2 mg/dL (0.0-2.0); WBC, URINE AUTO 28 /HPF (0-3)
[2018-09-24 11:15] LABS: BASO % 0.5 % (0.0-1.0); EOS # 0.3 10^3/uL (0.0-0.50); EOS % 4.3 % (0.0-3.0); HEMATOCRIT 40.2 % (36.0-47.0); HEMOGLOBIN 13.4 g/dl (12.0-15.5); LYMPH # 1.2 10^3/uL (1.5-4.5); LYMPH % 16.1 % (24.0-44.0); MEAN CORPUSCULAR HEMOGLOBIN 30.6 pg (27.0-33.0); MEAN CORPUSCULAR HGB CONC 33.3 g/dl (32.0-36.5); MEAN CORPUSCULAR VOLUME 91.8 fl (80.0-96.0); MONO # 0.5 10^3/uL (0.0-0.8); NEUTROPHILS # 5.3 10^3/uL (1.8-7.7); NEUTROPHILS % 71.8 % (36.0-66.0); PLATELET COUNT, AUTOMATED 249 10^3/uL (150-450); RED BLOOD COUNT 4.38 10^6/uL (4.00-5.40); WHITE BLOOD COUNT 7.4 10^3/uL (4.0-10.0)
[2018-09-24 11:50] LABS: CHOLESTEROL RISK RATIO 2.842 (<5); FREE T4 0.95 NG/DL (0.76-1.46); THYROID STIMULATING HORMONE 3.42 uIU/ML (0.358-3.740)
[2018-09-24 13:02] LABS: CREATININE, URINE 72.3 MG/DL; MALB URINE SIEMENS 93.6 MG/L; MAU/CREAT RATIO 129.4 MCG/MG (0.0-30.0)
[2018-09-24 14:28] LABS: HEMOGLOBIN A1c 8.7 %
== END ==
LOC: M SFHCPLAZ 08:13
PROVIDERS: ATTEND Family Medicine
DX: E53.8 Deficiency of other specified B group vitamins (principal); E78.2 Mixed hyperlipidemia; E03.9 Hypothyroidism, unspecified; E11.9 Type 2 diabetes mellitus without complications

== ENCOUNTER → 2019-02-22 | Outpatient (REF) | payer MEDICARE, OTHER ==
[~2019-02-22] MED LIST changes: -GLIM4TAB PO; +GLIM4TAB5 PO; +JARD1TAB3 PO; -METF750T PO; +METF750T36 PO
[2019-02-22 10:34] LABS: BASO % 0.4 % (0.0-1.0); EOS # 0.3 10^3/uL (0.0-0.50); EOS % 4.7 % (0.0-3.0); HEMATOCRIT 42.4 % (36.0-47.0); HEMOGLOBIN 13.6 g/dl (12.0-15.5); LYMPH # 1.4 10^3/uL (1.5-4.5); LYMPH % 19.3 % (24.0-44.0); MEAN CORPUSCULAR HEMOGLOBIN 30.6 pg (27.0-33.0); MEAN CORPUSCULAR HGB CONC 32.1 g/dl (32.0-36.5); MEAN CORPUSCULAR VOLUME 95.3 fl (80.0-96.0); MONO # 0.5 10^3/uL (0.0-0.8); MONO % 7.7 % (0.0-5.0); NEUTROPHILS # 4.8 10^3/uL (1.8-7.7); NEUTROPHILS % 67.6 % (36.0-66.0); PLATELET COUNT, AUTOMATED 264 10^3/uL (150-450); RED BLOOD COUNT 4.45 10^6/uL (4.00-5.40)
[2019-02-22 10:56] LABS: HEMOGLOBIN A1c 8.9 %
[2019-02-22 11:05] LABS: ALBUMIN 3.9 GM/DL (3.2-5.2); ALT/SGPT 34 U/L (12-78); BILIRUBIN,TOTAL 0.7 MG/DL (0.2-1.0); BLOOD UREA NITROGEN 17 MG/DL (7-18); CALCIUM LEVEL 9.1 MG/DL (8.8-10.2); CARBON DIOXIDE LEVEL 30 MEQ/L (21-32); CHLORIDE LEVEL 104 MEQ/L (98-107); GLOMERULAR FILTRATION RATE > 60.0 (>45); GLUCOSE, FASTING 120 MG/DL (70-100); POTASSIUM SERUM 4.2 MEQ/L (3.5-5.1); SODIUM LEVEL 141 MEQ/L (136-145); TOTAL PROTEIN 7.3 GM/DL (6.4-8.2)
[2019-02-22 11:12] LABS: PTH INTACT 54.5 PG/ML (18.5-88.0); TOTAL 25(OH) VITAMIN D 95.8 NG/ML (30.0-100.0)
== END ==
LOC: M SFHCPLAZ 08:06
PROVIDERS: ATTEND Family Medicine
DX: E53.8 Deficiency of other specified B group vitamins (principal); K76.0 Fatty (change of) liver, not elsewhere classified; E11.9 Type 2 diabetes mellitus without complications; E55.9 Vitamin D deficiency, unspecified

== ENCOUNTER → 2019-03-21 | Outpatient (CLI) | payer MEDICARE, OTHER ==
[~2019-03-21] MED LIST changes: +GLIM4TAB PO; -GLIM4TAB5 PO; +PROHANCE 279.3MG/ML 15ML VIAL (A9576) As Ordered ONE; +PROHANCE 279.3MG/ML 5ML VIAL (A9576) As Ordered ONE
--- NOTE | 2019-03-21 14:43 | REP ---
MRI cervical spine without and with IV contrast: History: Breast carcinoma, evaluate for metastases. New C4-5 dermatomal numbness. No comparison cervical spine imaging. Technique: Sagittal and axial T1 and T2-weighted scans are acquired in the usual fashion with and without fat saturation. Sequences include spin echo, turbo spin-echo, and STIR imaging sequences. MRI findings: There is slight straightening. Cervical vertebral body heights are preserved. Alignment is normal. There is no evidence to suggest skeletal metastatic disease. There is fairly advanced degenerative spondylosis. There is significant multilevel cervical cord extrinsic compression at each level in the cervical spine from C3-4 through C6-7. This is seen to be due to a combination of multilevel disc protrusions and calcification and thickening of the posterior longitudinal ligament. There is also a contribution from ligamentum flavum hypertrophy dorsally at each of these levels. There is no abnormal contrast enhancement to suggest leptomeningeal metastasis. No intramedullary enhancement is seen. There is some intramedullary cord T2 signal intensity increase at the C3-4 level which may be an early myelomalacia change. At C2-3, there is a small central disc protrusion which does not compress the cord. At C3-4, axial and sagittal images demonstrate a large central disc protrusion with low T1 and low T2 signal consistent with calcification producing severe cord compression and central canal stenosis. There is bilateral uncovertebral spurring. At C4-5, there is a large left posterior focal disc producing severe cord compression. The disc protrusion appears to be calcified. There is mild uncovertebral spurring on the right and severe neural foraminal narrowing on the left at C4-5 due to discogenic spurring. At C5-C6, there is a moderate sized left posterior focal disc protrusion which appears to be calcified producing moderate cord compression. There is bilateral uncovertebral spurring at C5-6 left greater than right. At C6-C7, there is a fairly large right posterior focal disc protrusion producing moderate cord compression. No neural foraminal narrowing is seen at 6-7. The C7-T1 level shows no definite disc abnormality. Impression: There is severe degenerative spondylosis changes with multiple large calcified disc protrusions producing significant compression of the cervical cord at each level from C3-4 through C6-7, as discussed in detail above. There is no evidence to suggest metastatic disease. The calcified nature of the disc protrusions and the degree of posterior longitudinal ligament calcification and thickening may be further assessed if clinically warranted by CT study of the cervical spine. There is an ill-defined area of intramedullary T2 edema in the cervical cord at the C3-4 level which may be a early myelomalacia change. Electronically Signed by Trent Trevino MD 03/21/2019 03:11 P
== END ==
LOC: M RAD 11:11
PROVIDERS: ATTEND Internal Medicine Medical Oncology
DX: R20.0 Anesthesia of skin (principal); Z85.3 Personal history of malignant neoplasm of breast; M50.21 Other cervical disc displacement, high cervical region; M50.221 Other cervical disc displacement at C4-C5 level; M50.222 Other cervical disc displacement at C5-C6 level; M50.223 Other cervical disc displacement at C6-C7 level; M47.812 Spondylosis without myelopathy or radiculopathy, cervical region
CPT/HCPCS: 72156; A9576

== ENCOUNTER → 2019-08-15 | Outpatient (CLI) | payer MEDICARE, OTHER ==
[~2019-08-15] MED LIST changes: -GLIM4TAB PO; +GLIM4TAB5 PO; -PROHANCE 279.3MG/ML 15ML VIAL (A9576) As Ordered ONE; -PROHANCE 279.3MG/ML 5ML VIAL (A9576) As Ordered ONE; -TELM1TAB PO; +TELM1TAB35 PO
[2019-08-15 09:55] LABS: BLOOD UREA NITROGEN 16 MG/DL (7-18); CALCIUM LEVEL 9.5 MG/DL (8.8-10.2); CARBON DIOXIDE LEVEL 30 MEQ/L (21-32); CHLORIDE LEVEL 104 MEQ/L (98-107); CREATININE FOR GFR 0.57 MG/DL (0.55-1.30); GLOMERULAR FILTRATION RATE > 60.0 (>45); GLUCOSE, FASTING 138 MG/DL (70-100); POTASSIUM SERUM 4.7 MEQ/L (3.5-5.1); SODIUM LEVEL 139 MEQ/L (136-145)
== END ==
LOC: M PLALAB 08:51
PROVIDERS: ATTEND Physician Assistant
DX: M54.2 Cervicalgia (principal)

== ENCOUNTER → 2019-08-26 | Outpatient (CLI) | payer MEDICARE, OTHER ==
[2019-08-26 13:27] LABS: ALBUMIN 4.2 GM/DL (3.2-5.2); ALT/SGPT 37 U/L (12-78); BILIRUBIN,TOTAL 0.6 MG/DL (0.2-1.0); BLOOD UREA NITROGEN 16 MG/DL (7-18); C REACTIVE PROTEIN QUANTITATIV 1.25 MG/DL (0.00-0.30); CARBON DIOXIDE LEVEL 30 MEQ/L (21-32); CHLORIDE LEVEL 105 MEQ/L (98-107); CHOLESTEROL LEVEL 149 MG/DL (<200); CHOLESTEROL RISK RATIO 2.483 (<5); CPK CREATINE PHOSPHOKINASE 60 U/L (26-192); CREATININE FOR GFR 0.52 MG/DL (0.55-1.30); FREE T4 0.91 NG/DL (0.76-1.46); GLOMERULAR FILTRATION RATE > 60.0 (>45); GLUCOSE, FASTING 124 MG/DL (70-100); HDL CHOLESTEROL 60 MG/DL (>40); LDL CHOLESTEROL 61 MG/DL (<100); NON-HDL-C 89 MG/DL; POTASSIUM SERUM 4.1 MEQ/L (3.5-5.1); SODIUM LEVEL 140 MEQ/L (136-145); TOTAL PROTEIN 7.5 GM/DL (6.4-8.2); TRIGLYCERIDES LEVEL 141 MG/DL (<150)
[2019-08-26 13:53] LABS: HEMOGLOBIN A1c 7.7 %
== END ==
LOC: M PLALAB 08:19
PROVIDERS: ATTEND Family Medicine
DX: M47.812 Spondylosis without myelopathy or radiculopathy, cervical region (principal); E03.9 Hypothyroidism, unspecified; E11.9 Type 2 diabetes mellitus without complications

== ENCOUNTER → 2019-10-15 | Outpatient (REF) | payer MEDICARE, OTHER ==
[2019-10-15 13:41] LABS: BASO % 0.4 % (0.0-1.0); EOS # 0.3 10^3/uL (0.0-0.5); EOS % 3.7 % (0.0-3.0); HEMATOCRIT 43.8 % (36.0-47.0); HEMOGLOBIN 14.2 g/dl (12.0-15.5); LYMPH # 1.6 10^3/uL (1.5-5.0); MEAN CORPUSCULAR HEMOGLOBIN 31.3 pg (27.0-33.0); MEAN CORPUSCULAR HGB CONC 32.4 g/dl (32.0-36.5); MEAN CORPUSCULAR VOLUME 96.5 fl (80.0-96.0); MONO # 0.5 10^3/uL (0.0-0.8); MONO % 6.6 % (0.0-5.0); NEUTROPHILS # 4.5 10^3/uL (1.5-8.5); PLATELET COUNT, AUTOMATED 261 10^3/uL (150-450); RED BLOOD COUNT 4.54 10^6/uL (4.00-5.40); WHITE BLOOD COUNT 6.8 10^3/uL (4.0-10.0)
[2019-10-15 13:46] LABS: INR 1.03; PROTHROMBIN TIME 13.2 SECONDS (11.8-14.0)
[2019-10-15 14:03] LABS: ALBUMIN 4.2 GM/DL (3.2-5.2); ALT/SGPT 32 U/L (12-78); BILIRUBIN,TOTAL 0.6 MG/DL (0.2-1.0); BLOOD UREA NITROGEN 15 MG/DL (7-18); CALCIUM LEVEL 9.8 MG/DL (8.8-10.2); CARBON DIOXIDE LEVEL 29 MEQ/L (21-32); CHLORIDE LEVEL 103 MEQ/L (98-107); CREATININE FOR GFR 0.58 MG/DL (0.55-1.30); FREE T4 0.98 NG/DL (0.76-1.46); GLOMERULAR FILTRATION RATE > 60.0 (>45); GLUCOSE, FASTING 130 MG/DL (70-100); POTASSIUM SERUM 4.7 MEQ/L (3.5-5.1); SODIUM LEVEL 138 MEQ/L (136-145); TOTAL PROTEIN 7.9 GM/DL (6.4-8.2)
== END ==
LOC: M SFHCPLAZ 12:25
PROVIDERS: ATTEND Family Medicine
DX: Z01.818 Encounter for other preprocedural examination (principal); E11.9 Type 2 diabetes mellitus without complications; E03.9 Hypothyroidism, unspecified; K76.0 Fatty (change of) liver, not elsewhere classified

== ENCOUNTER → 2019-10-15 | Outpatient (CLI) | payer MEDICARE, OTHER | LOC: M WHC 09:04 | PROVIDERS: ATTEND Internal Medicine Medical Oncology | DX: Z01.818 Encounter for other preprocedural examination (principal); M85.88 Other specified disorders of bone density and structure, other site; Z79.811 Long term (current) use of aromatase inhibitors; E11.9 Type 2 diabetes mellitus without complications; E03.9 Hypothyroidism, unspecified; K76.0 Fatty (change of) liver, not elsewhere classified | CPT/HCPCS: 36415; 77080; 80053; 83036; 84439; 84443; 85025; 85046; 85610; 85730; 87641; 93005; G0463 ==

== ENCOUNTER → 2019-11-29 | Outpatient (CLI) | payer MEDICARE, OTHER ==
[~2019-11-29] MED LIST changes: +ATOR1TAB21 PO; +CELE1CAP9 PO; +MAGN250T7 PO; +SYNT50TA PO
--- NOTE | 2019-11-29 13:27 | REP ---
REASON FOR EXAM: Disc disease. Previous posterior fixation. COMPARISON: None. Posterior fixation is seen bilaterally from C3 to C7. There is disc space narrowing, which is severe, at C4-5 and C5-6. More moderate disc space narrowing is seen at all other levels. Today's exam is limited by AP and lateral views alone. IMPRESSION: Chronic changes, as described above. Electronically Signed by Jefferson Menendez DO 11/29/2019 05:03 P
== END ==
LOC: M RAD 08:52
PROVIDERS: ATTEND Physician Assistant
DX: G95.89 Other specified diseases of spinal cord (principal)

== ENCOUNTER → 2020-01-06 | Outpatient (CLI) | payer MEDICARE, OTHER ==
[2020-01-06 14:26] LABS: APPEARANCE, URINE CLEAR (CLEAR); BACTERIA, URINE AUTO NEGATIVE (NEGATIVE); BILIRUBIN, URINE AUTO NEGATIVE (NEGATIVE); BLOOD, URINE BLOOD NEGATIVE (NEGATIVE); COLOR, URINE YELLOW (YELLOW); GLUCOSE, URINE (UA) AUTO 3+ mg/dL (NEGATIVE); KETONE, URINE AUTO NEGATIVE (NEGATIVE); LEUKOCYTE ESTERASE, URINE AUTO NEGATIVE (NEGATIVE); NITRITE, URINE AUTO NEGATIVE (NEGATIVE); PROTEIN, URINE AUTO NEGATIVE (NEGATIVE); RBC, URINE AUTO 0 /HPF (0-3); SPECIFIC GRAVITY URINE AUTO 1.032 (1.002-1.035); SQUAMOUS EPITHELIAL CELL UR AU 0 /HPF (0-6); UROBILINOGEN, URINE AUTO 0.2 mg/dL (0.0-2.0); WBC, URINE AUTO 0 /HPF (0-3)
[2020-01-06 14:37] LABS: BASO % 0.6 % (0.0-1.0); EOS # 0.3 10^3/uL (0.0-0.5); EOS % 4.8 % (0.0-3.0); HEMATOCRIT 42.6 % (36.0-47.0); HEMOGLOBIN 13.4 g/dl (12.0-15.5); LYMPH # 1.6 10^3/uL (1.5-5.0); LYMPH % 24.1 % (24.0-44.0); MEAN CORPUSCULAR HEMOGLOBIN 30.9 pg (27.0-33.0); MEAN CORPUSCULAR HGB CONC 31.5 g/dl (32.0-36.5); MEAN CORPUSCULAR VOLUME 98.2 fl (80.0-96.0); MONO # 0.5 10^3/uL (0.0-0.8); NEUTROPHILS # 4.3 10^3/uL (1.5-8.5); NEUTROPHILS % 63.2 % (36.0-66.0); PLATELET COUNT, AUTOMATED 262 10^3/uL (150-450); RED BLOOD COUNT 4.34 10^6/uL (4.00-5.40); WHITE BLOOD COUNT 6.7 10^3/uL (4.0-10.0)
[2020-01-06 14:59] LABS: ALBUMIN 3.8 GM/DL (3.2-5.2); ALT/SGPT 32 U/L (12-78); BILIRUBIN,TOTAL 0.7 MG/DL (0.2-1.0); BLOOD UREA NITROGEN 15 MG/DL (7-18); CALCIUM LEVEL 9.1 MG/DL (8.8-10.2); CARBON DIOXIDE LEVEL 29 MEQ/L (21-32); CHLORIDE LEVEL 105 MEQ/L (98-107); CREATININE FOR GFR 0.57 MG/DL (0.55-1.30); GLOMERULAR FILTRATION RATE > 60.0 (>45); GLUCOSE, FASTING 135 MG/DL (70-100); SODIUM LEVEL 141 MEQ/L (136-145); TOTAL PROTEIN 7.2 GM/DL (6.4-8.2)
[2020-01-06 15:32] LABS: MALB URINE SIEMENS 19.7 MG/L; MAU/CREAT RATIO 26.6 MCG/MG (0.0-30.0)
[2020-01-06 16:08] LABS: HEMOGLOBIN A1c 8.2 %
== END ==
LOC: M PLALAB 09:21
PROVIDERS: ATTEND Family Medicine
DX: I10 Essential (primary) hypertension (principal); E11.9 Type 2 diabetes mellitus without complications

== ENCOUNTER → 2020-01-13 | Outpatient (CLI) | payer MEDICARE, OTHER ==
--- NOTE | 2020-01-13 10:13 | REP ---
Clinical: Pain. Technique: AP, lateral, swimmers views of the cervical spine. Comparison: 11/29/2019. Findings: Evidence for prior laminectomy and posterior fixation spanning C3 - C7 which appears relatively stable as compared to prior examination. Underlying osteopenia and advanced multilevel degenerative changes are again noted. Prevertebral soft tissues are normal. Impression: No significant change from prior examination. Electronically Signed by Richar Carter MD 01/13/2020 10:05 A
== END ==
LOC: M RAD 09:16
PROVIDERS: ATTEND Physician Assistant
DX: M47.12 Other spondylosis with myelopathy, cervical region (principal)

== ENCOUNTER → 2020-03-16 | Outpatient (REF) | payer MEDICARE, OTHER | LOC: M SFHCPLAZ 12:57 | PROVIDERS: ATTEND Physician Assistant | DX: R31.9 Hematuria, unspecified (principal) ==

== ENCOUNTER → 2020-03-26 | Outpatient (REF) | payer MEDICARE, OTHER | LOC: M SFHCPLAZ 17:06 | PROVIDERS: ATTEND Physician Assistant | DX: R30.0 Dysuria (principal); R31.9 Hematuria, unspecified ==

== ENCOUNTER → 2020-06-30 | Outpatient (REF) | payer MEDICARE, OTHER ==
[~2020-06-30] MED LIST changes: +FARX1TAB3 PO; +VITA50005 PO
[2020-06-30 14:11] LABS: CHOLESTEROL RISK RATIO 3.241 (<5); FREE T4 0.93 NG/DL (0.76-1.46); THYROID STIMULATING HORMONE 2.53 uIU/ML (0.358-3.740)
[2020-06-30 14:36] LABS: TOTAL 25(OH) VITAMIN D 79.1 NG/ML (30.0-100.0)
[2020-06-30 14:37] LABS: PTH INTACT 52.3 PG/ML (18.5-88.0)
[2020-06-30 14:43] LABS: HEMOGLOBIN A1c 8.3 %
== END ==
LOC: M PLALAB 09:14
PROVIDERS: ATTEND Family Medicine
DX: E04.2 Nontoxic multinodular goiter (principal); E11.9 Type 2 diabetes mellitus without complications; E78.2 Mixed hyperlipidemia; E55.9 Vitamin D deficiency, unspecified; Z79.899 Other long term (current) drug therapy

== ENCOUNTER → 2020-10-15 | Outpatient (CLI) | payer MEDICARE, OTHER ==
--- NOTE | 2020-10-15 12:10 | DEXAMM ---
INDICATION: HX BREASST CA,OSTEOPENIA. COMPARISON: Comparison densitometry study 15 October 2019, 12 September 2017, and 14 June 2005.. TECHNIQUE: Bone density was measured using dual-energy x-ray absorptionmetry (DEXA). FINDINGS: AP SPINE L1-L4 BMD 1.158 g/cm2 Young Adult T-Score -0.3 Age Matched Z-Score 1.4. LT FEMUR, TOTAL BMD 0.881 g/cm2 Young Adult T-Score -1.0 Age Matched Z-Score 0.4. LT NECK BMD 0.782 g/cm2 Young Adult T-Score -1.8 Age Matched Z-Score -0.2. RT FEMUR, TOTAL BMD 0.872 g/cm2 Young Adult T-Score -1.1 Age Matched Z-Score 0.4. RT NECK BMD 0.760 g/cm2 Young Adult T-Score -2.0 Age Matched Z-Score -0.3. IMPRESSION: There is normal bone density of the spine. There is low bone density of the left hip. There is low bone density of the right hip. The density of the spine has increased 1.0% since the initial exam on June 14, 2005. The density of the spine increased 1.0% since most recent exam on October 14, 2020. The density of the left hip has decreased 10.8% since initial exam on June 14, 2005. The density of the left hip has decreased 2.5% since most recent exam on October 14, 2020. The density of the right hip has decreased 11.7% since the initial exam on June 14, 2005. The density of the right hip has decreased 3.6% since the most recent exam on October 14, 2020. FOLLOW-UP: Recommendation for the next bone density exam: 2 years. <Electronically signed by Ronald Trevino > 10/15/20 [id number]
== END ==
LOC: M WHC 10:10
PROVIDERS: ATTEND Internal Medicine Medical Oncology
DX: Z85.3 Personal history of malignant neoplasm of breast (principal)

== ENCOUNTER → 2020-11-12 | Outpatient (REF) | payer MEDICARE, OTHER ==
[~2020-11-12] MED LIST changes: +B-122500 PO; +COVI100V IM
[2020-11-12 13:33] LABS: BASO % 0.6 % (0.0-1.0); EOS # 0.3 10^3/uL (0.0-0.5); EOS % 4.9 % (0.0-3.0); HEMATOCRIT 43.3 % (36.0-47.0); HEMOGLOBIN 13.5 g/dl (12.0-15.5); LYMPH # 1.5 10^3/uL (1.5-5.0); LYMPH % 24.4 % (24.0-44.0); MEAN CORPUSCULAR HEMOGLOBIN 30.4 pg (27.0-33.0); MEAN CORPUSCULAR HGB CONC 31.2 g/dl (32.0-36.5); MEAN CORPUSCULAR VOLUME 97.5 fl (80.0-96.0); MONO # 0.5 10^3/uL (0.0-0.8); MONO % 7.6 % (2.0-8.0); NEUTROPHILS # 3.8 10^3/uL (1.5-8.5); NEUTROPHILS % 62.2 % (36.0-66.0); PLATELET COUNT, AUTOMATED 242 10^3/uL (150-450); RED BLOOD COUNT 4.44 10^6/uL (4.00-5.40); WHITE BLOOD COUNT 6.2 10^3/uL (4.0-10.0)
[2020-11-12 14:06] LABS: ALT/SGPT 27 U/L (12-78); BILIRUBIN,TOTAL 0.6 MG/DL (0.2-1.0); BLOOD UREA NITROGEN 18 MG/DL (7-18); CALCIUM LEVEL 9.3 MG/DL (8.8-10.2); CARBON DIOXIDE LEVEL 31 MEQ/L (21-32); CHLORIDE LEVEL 105 MEQ/L (98-107); FERRITIN 260 NG/ML (8-252); FREE T4 0.84 NG/DL (0.76-1.46); GLOMERULAR FILTRATION RATE > 60.0 (>45); GLUCOSE, FASTING 117 MG/DL (70-100); POTASSIUM SERUM 4.6 MEQ/L (3.5-5.1); SODIUM LEVEL 140 MEQ/L (136-145); TOTAL PROTEIN 7.4 GM/DL (6.4-8.2)
[2020-11-12 14:08] LABS: VITAMIN B12 LEVEL 333 PG/ML (247-911)
== END ==
LOC: M PLALAB 10:22
PROVIDERS: ATTEND Family Medicine
DX: E53.8 Deficiency of other specified B group vitamins (principal); E11.9 Type 2 diabetes mellitus without complications; E03.9 Hypothyroidism, unspecified

== ENCOUNTER 2020-12-01 11:47 | Outpatient (CLI) | payer MEDICARE, OTHER ==
[~2020-12-01] VITALS: Ht 157.5 cm; Wt 88.9 kg
[~2020-12-01 11:47] MED LIST changes: +ZOLEDRONIC ACID 4 MG in IV 1 EA IV ONE
[2020-12-01 12:22] VITALS: BP 178/85
[2020-12-01 12:35] VITALS: BP 140/71
== END 2020-12-01 12:35 | disposition home or self-care (01) ==
LOC: M INFU 11:47
PROVIDERS: ATTEND Family Medicine
DX: M85.80 Other specified disorders of bone density and structure, unspecified site (principal)
CPT/HCPCS: 96365; J3489

== ENCOUNTER → 2021-03-22 | Outpatient (CLI) | payer MEDICARE, OTHER ==
[~2021-03-22] MED LIST changes: +ERGO500029 PO; -VITA50005 PO; -ZOLEDRONIC ACID 4 MG in IV 1 EA IV ONE
[2021-03-22 13:43] LABS: BASO # 0.1 10^3/uL (0.0-0.2); BASO % 0.6 % (0.0-1.0); EOS # 0.3 10^3/uL (0.0-0.5); EOS % 3.9 % (0.0-3.0); HEMATOCRIT 44.4 % (36.0-47.0); HEMOGLOBIN 14.2 g/dl (12.0-15.5); LYMPH # 1.7 10^3/uL (1.5-5.0); LYMPH % 21.1 % (24.0-44.0); MEAN CORPUSCULAR HEMOGLOBIN 30.7 pg (27.0-33.0); MEAN CORPUSCULAR VOLUME 95.9 fl (80.0-96.0); MONO # 0.5 10^3/uL (0.0-0.8); MONO % 6.7 % (2.0-8.0); NEUTROPHILS # 5.4 10^3/uL (1.5-8.5); NEUTROPHILS % 67.3 % (36.0-66.0); PLATELET COUNT, AUTOMATED 270 10^3/uL (150-450); RED BLOOD COUNT 4.63 10^6/uL (4.00-5.40)
[2021-03-22 14:15] LABS: HEMOGLOBIN A1c 6.7 %
[2021-03-22 14:19] LABS: ALT/SGPT 27 U/L (12-78); BILIRUBIN,TOTAL 0.7 MG/DL (0.2-1.0); BLOOD UREA NITROGEN 13 MG/DL (7-18); CALCIUM LEVEL 9.1 MG/DL (8.8-10.2); CARBON DIOXIDE LEVEL 32 MEQ/L (21-32); CHLORIDE LEVEL 105 MEQ/L (98-107); CHOLESTEROL LEVEL 167 MG/DL (<200); CREATININE FOR GFR 0.54 MG/DL (0.55-1.30); GLOMERULAR FILTRATION RATE > 60.0 (>39); GLUCOSE, FASTING 96 MG/DL (70-100); HDL CHOLESTEROL 53 MG/DL (>40); LDL CHOLESTEROL 74 MG/DL (<100); NON-HDL-C 114 MG/DL; NT-PRO BNP 23 PG/ML (<125); POTASSIUM SERUM 4.7 MEQ/L (3.5-5.1); PTH INTACT 76.7 PG/ML (18.5-88.0); SODIUM LEVEL 141 MEQ/L (136-145); TOTAL 25(OH) VITAMIN D 89.4 NG/ML (30.0-100.0); TOTAL PROTEIN 7.6 GM/DL (6.4-8.2); TRIGLYCERIDES LEVEL 200 MG/DL (<150); VITAMIN B12 LEVEL 622 PG/ML (247-911)
[2021-03-22 14:20] LABS: MALB URINE SIEMENS 22.8 MG/L; MAU/CREAT RATIO 31.6 MCG/MG (0.0-30.0)
== END ==
LOC: M PLALAB 09:28
PROVIDERS: ATTEND Family Medicine
DX: E11.9 Type 2 diabetes mellitus without complications (principal); E53.8 Deficiency of other specified B group vitamins; I10 Essential (primary) hypertension; E55.9 Vitamin D deficiency, unspecified; Z79.899 Other long term (current) drug therapy

== ENCOUNTER 2021-06-23 00:01 | Emergency (ER) | payer MEDICARE, OTHER ==
[~2021-06-23] VITALS: Ht 157.5 cm; Wt 84.1 kg
[2021-06-23 02:22] LABS: BASO % 0.4 % (0.0-1.0); EOS # 0.4 10^3/uL (0.0-0.5); EOS % 3.9 % (0.0-3.0); HEMOGLOBIN 14.1 g/dl (12.0-15.5); LYMPH # 1.8 10^3/uL (1.5-5.0); LYMPH % 19.3 % (24.0-44.0); MEAN CORPUSCULAR HEMOGLOBIN 30.9 pg (27.0-33.0); MEAN CORPUSCULAR HGB CONC 32.8 g/dl (32.0-36.5); MEAN CORPUSCULAR VOLUME 94.3 fl (80.0-96.0); MONO # 0.7 10^3/uL (0.0-0.8); MONO % 7.7 % (2.0-8.0); NEUTROPHILS # 6.4 10^3/uL (1.5-8.5); NEUTROPHILS % 68.5 % (36.0-66.0); PLATELET COUNT, AUTOMATED 278 10^3/uL (150-450); RED BLOOD COUNT 4.56 10^6/uL (4.00-5.40); WHITE BLOOD COUNT 9.3 10^3/uL (4.0-10.0)
--- NOTE | 2021-06-23 03:23 | REPVR ---
PROCEDURE INFORMATION: Exam: XR Chest Exam date and time: 06/23/2021 1:51 AM Age: 71 years old Clinical indication: Pain; Other: Un specified; Additional info: Chest pain TECHNIQUE: Imaging protocol: XR of the chest. Views: 1 view. COMPARISON: CT Chest with contrast 01/17/2018 2:14 PM FINDINGS: Lungs: Clear. No consolidation. Pleural spaces: No pleural effusion. No pneumothorax. Heart/Mediastinum: Unremarkable. No cardiomegaly. Bones/joints: Unremarkable. Soft tissues: Surgical clips are noted in both breasts. IMPRESSION: No acute findings. Electronically signed by: Kartik Razo On 06/23/2021 03:22:31 AM
[2021-06-23 03:33] LABS: BLOOD UREA NITROGEN 16 MG/DL (7-18); CALCIUM LEVEL 9.2 MG/DL (8.8-10.2); CARBON DIOXIDE LEVEL 25 MEQ/L (21-32); CHLORIDE LEVEL 108 MEQ/L (98-107); CREATININE FOR GFR 0.55 MG/DL (0.55-1.30); GLOMERULAR FILTRATION RATE > 60.0 (>39); GLUCOSE, FASTING 136 MG/DL (70-100); POTASSIUM SERUM 4.1 MEQ/L (3.5-5.1); SODIUM LEVEL 141 MEQ/L (136-145)
[2021-06-23 03:37] LABS: CK-MB VALUE MASS < 1.0 NG/ML (<3.6); CPK CREATINE PHOSPHOKINASE 71 U/L (26-192); MB/CK RELATIVE INDEX 1.41 (< OR =4)
[2021-06-23] MEDS ORDERED: KETOROLAC 30 MG/ML 1ML VIAL IV ONE (03:55)
[2021-06-23 04:46] LABS: CK-MB VALUE MASS < 1.0 NG/ML (<3.6); CPK CREATINE PHOSPHOKINASE 118 U/L (26-192); MB/CK RELATIVE INDEX 0.85 (< OR =4)
--- NOTE | 2021-06-23 04:47 | REPVR ---
PROCEDURE INFORMATION: Exam: US Duplex Left Upper Extremity Veins, Limited Exam date and time: 06/23/2021 4:39 AM Age: 71 years old Clinical indication: Pain; Arm, upper; Left; Additional info: Left bicep pain, HX of CA TECHNIQUE: Imaging protocol: Real-time Duplex ultrasound of the Left Upper Extremity with 2-D dunne scale, color Doppler flow and spectral waveform analysis with image documentation. Limited exam focused on the left upper extremity veins. COMPARISON: CT Chest with contrast 01/17/2018 2:14 PM FINDINGS: Left deep veins: Unremarkable. Axillary and brachial veins are patent throughout without thrombus. Normal Doppler waveforms. Normal compressibility and/or augmentation response. Visualized internal jugular and subclavian veins are patent. Left superficial veins: Unremarkable. Visualized cephalic and basilic veins are patent without thrombus. Soft tissues: Unremarkable. IMPRESSION: No evidence of deep vein thrombosis. Electronically signed by: Kartik Razo On 06/23/2021 04:46:23 AM
[2021-06-23] MEDS ORDERED: NAPROXEN 250 MG TAB PO ONE (05:10)
[2021-06-23] MEDS ORDERED: NAPR-837 PO (05:15)
[2021-06-23 05:30] VITALS: BP 145/59
--- NOTE | 2021-06-23 19:40 | ECGEPIP ---
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
== END 2021-06-23 05:58 | disposition home or self-care (01) ==
LOC: M ED 00:01
DX: I10 Essential (primary) hypertension (principal); M79.602 Pain in left arm; E11.9 Type 2 diabetes mellitus without complications; F10.10 Alcohol abuse, uncomplicated; Z79.84 Long term (current) use of oral hypoglycemic drugs

== ENCOUNTER → 2021-07-19 | Outpatient (CLI) | payer MEDICARE, OTHER ==
[~2021-07-19] MED LIST changes: +NAPR-837 PO
== END ==
LOC: M RAD 10:38
PROVIDERS: ATTEND Family Medicine
DX: M47.814 Spondylosis without myelopathy or radiculopathy, thoracic region (principal)

== ENCOUNTER → 2021-10-28 | Outpatient (CLI) | payer MEDICARE, OTHER ==
[2021-10-28 10:43] LABS: ALT/SGPT 27 U/L (12-78); BILIRUBIN,TOTAL 0.7 MG/DL (0.2-1.0); BLOOD UREA NITROGEN 16 MG/DL (7-18); CALCIUM LEVEL 9.7 MG/DL (8.8-10.2); CARBON DIOXIDE LEVEL 30 MEQ/L (21-32); CHLORIDE LEVEL 105 MEQ/L (98-107); CREATININE FOR GFR 0.43 MG/DL (0.55-1.30); FERRITIN 276 NG/ML (8-252); FREE T4 0.84 NG/DL (0.76-1.46); GLOMERULAR FILTRATION RATE > 60.0 (>39); GLUCOSE, FASTING 136 MG/DL (70-100); POTASSIUM SERUM 4.8 MEQ/L (3.5-5.1); SODIUM LEVEL 142 MEQ/L (136-145); TOTAL PROTEIN 7.3 GM/DL (6.4-8.2)
[2021-10-28 11:17] LABS: HEMOGLOBIN A1c 7.1 %
[2021-10-29 08:27] LABS: ALBUMIN 4.31 GM/DL (3.29-5.55); ALBUMIN % 59.1 % (55.8-66.1); ALPHA-1-GLOBULIN % 4.1 % (2.9-4.9); ALPHA-2-GLOBULINS 0.85 GM/DL (0.42-0.99); ALPHA-2-GLOBULINS % 11.7 % (7.1-11.8); BETA-1-GLOBULINS 0.41 GM/DL (0.28-0.60); BETA-1-GLOBULINS % 5.6 % (4.7-7.2); BETA-2-GLOBULINS 0.42 GM/DL (0.19-0.55); BETA-2-GLOBULINS % 5.7 % (3.2-6.5); GAMMA GLOBULIN % 13.8 % (11.1-18.8); GAMMA GLOBULINS 1.01 GM/DL (0.65-1.58)
== END ==
LOC: M PLALAB 09:12
PROVIDERS: ATTEND Family Medicine
DX: E11.9 Type 2 diabetes mellitus without complications (principal)

== ENCOUNTER → 2021-11-12 | Outpatient (CLI) | payer MEDICARE, OTHER | LOC: M RAD 12:22 | PROVIDERS: ATTEND Physician Assistant | DX: G95.89 Other specified diseases of spinal cord (principal); M50.30 Other cervical disc degeneration, unspecified cervical region; M43.02 Spondylolysis, cervical region; Z98.890 Other specified postprocedural states ==

== ENCOUNTER → 2021-12-09 | Outpatient (CLI) | payer MEDICARE, OTHER | LOC: M SLEEP HO 10:33 | PROVIDERS: ATTEND Family Medicine | DX: R53.83 Other fatigue (principal) ==

== ENCOUNTER → 2022-02-25 | Outpatient (CLI) | payer MEDICARE, OTHER ==
[2022-02-25 15:15] LABS: BLOOD UREA NITROGEN 15 MG/DL (7-18); CREATININE FOR GFR 0.51 MG/DL (0.55-1.30); GLOMERULAR FILTRATION RATE > 60.0 (>39)
== END ==
LOC: M PLALAB 09:15
PROVIDERS: ATTEND Otolaryngology
DX: H91.93 Unspecified hearing loss, bilateral (principal)

== ENCOUNTER → 2022-03-04 | Outpatient (CLI) | payer MEDICARE, OTHER ==
[~2022-03-04] MED LIST changes: +PROHANCE 279.3MG/ML 15ML VIAL ONE; +PROHANCE 279.3MG/ML 5ML VIAL ONE
== END ==
LOC: M PLAIMG 13:04
PROVIDERS: ATTEND Otolaryngology
DX: H90.3 Sensorineural hearing loss, bilateral (principal)
CPT/HCPCS: 70553; A9576

== ENCOUNTER → 2022-03-07 | Outpatient (CLI) | payer MEDICARE, OTHER ==
[~2022-03-07] MED LIST changes: -PROHANCE 279.3MG/ML 15ML VIAL ONE; -PROHANCE 279.3MG/ML 5ML VIAL ONE
[2022-03-07 10:36] LABS: BASO # 0.1 10^3/uL (0.0-0.2); BASO % 0.7 % (0.0-1.0); EOS # 0.3 10^3/uL (0.0-0.5); EOS % 4.7 % (0.0-3.0); HEMATOCRIT 43.9 % (36.0-47.0); HEMOGLOBIN 14.1 g/dl (12.0-15.5); LYMPH # 1.9 10^3/uL (1.5-5.0); LYMPH % 26.8 % (24.0-44.0); MEAN CORPUSCULAR HEMOGLOBIN 31.5 pg (27.0-33.0); MEAN CORPUSCULAR HGB CONC 32.1 g/dl (32.0-36.5); MONO # 0.5 10^3/uL (0.0-0.8); MONO % 7.1 % (2.0-8.0); NEUTROPHILS # 4.4 10^3/uL (1.5-8.5); NEUTROPHILS % 60.3 % (36.0-66.0); PLATELET COUNT, AUTOMATED 259 10^3/uL (150-450); RED BLOOD COUNT 4.48 10^6/uL (4.00-5.40); WHITE BLOOD COUNT 7.2 10^3/uL (4.0-10.0)
[2022-03-07 10:47] LABS: INR 0.92; PROTHROMBIN TIME 12.7 SECONDS (12.7-14.5)
[2022-03-07 10:48] LABS: PARTIAL THROMBOPLASTIN TIME 34.6 SECONDS (25.9-37.0)
[2022-03-07 11:21] LABS: ALBUMIN 4.2 GM/DL (3.2-5.2); ALT/SGPT 37 U/L (12-78); BILIRUBIN,TOTAL 0.6 MG/DL (0.2-1.0); BLOOD UREA NITROGEN 17 MG/DL (7-18); CALCIUM LEVEL 9.8 MG/DL (8.8-10.2); CARBON DIOXIDE LEVEL 30 MEQ/L (21-32); CHLORIDE LEVEL 104 MEQ/L (98-107); CHOLESTEROL LEVEL 167 MG/DL (<200); CHOLESTEROL RISK RATIO 2.879 (<5); CREATININE FOR GFR 0.56 MG/DL (0.55-1.30); GLOMERULAR FILTRATION RATE > 60.0 (>39); GLUCOSE, FASTING 141 MG/DL (70-100); HDL CHOLESTEROL 58 MG/DL (>40); LDL CHOLESTEROL 74 MG/DL (<100); NON-HDL-C 109 MG/DL; POTASSIUM SERUM 4.7 MEQ/L (3.5-5.1); SODIUM LEVEL 139 MEQ/L (136-145); TOTAL PROTEIN 7.4 GM/DL (6.4-8.2); TRIGLYCERIDES LEVEL 174 MG/DL (<150)
[2022-03-07 12:39] LABS: CREATININE, URINE 54.9 MG/DL; MALB URINE SIEMENS 18.6 MG/L; MAU/CREAT RATIO 33.8 MCG/MG (0.0-30.0)
[2022-03-07 12:41] LABS: HEMOGLOBIN A1c 7.8 %
== END ==
LOC: M PLALAB 08:13
PROVIDERS: ATTEND Family Medicine
DX: E78.2 Mixed hyperlipidemia (principal); K76.0 Fatty (change of) liver, not elsewhere classified; E53.8 Deficiency of other specified B group vitamins; E11.9 Type 2 diabetes mellitus without complications; F41.1 Generalized anxiety disorder

== ENCOUNTER → 2022-04-25 | Outpatient (CLI) | payer MEDICARE, OTHER ==
[~2022-04-25] MED LIST changes: +ALEN70TA82 PO; +ALL10TAB2 PO; +CETI5TAB5 PO; +FLON1SPR NARES; +JARD1TAB3; +TRUL10IN
== END ==
LOC: M LABSMTC 09:22
DX: Z20.822 Contact with and (suspected) exposure to COVID-19 (principal)

== ENCOUNTER → 2022-08-10 | Outpatient (CLI) | payer MEDICARE, OTHER | LOC: M SLEEP 20:00 | PROVIDERS: ATTEND Nurse Practitioner Family | DX: G47.33 Obstructive sleep apnea (adult) (pediatric) (principal) ==

== ENCOUNTER → 2022-08-19 | Outpatient (CLI) | payer MEDICARE, OTHER ==
[2022-08-19 15:02] LABS: ALBUMIN 4.1 G/DL (3.2-5.2); ALKALINE PHOSPHATASE 119 U/L (46-116); ALT/SGPT 40 U/L (7.0-40); AST/SGOT 20 U/L (<34); BLOOD UREA NITROGEN 19 MG/DL (9-23); CALCIUM LEVEL 9.4 MG/DL (8.3-10.6); CARBON DIOXIDE LEVEL 30 MMOL/L (20-31); CHLORIDE LEVEL 101 MMOL/L (98-107); CHOLESTEROL LEVEL 170 MG/DL (<200); CHOLESTEROL RISK RATIO 3.16 (<5); CREATININE FOR GFR 0.49 MG/DL (0.55-1.30); FREE T4 0.89 NG/DL (0.89-1.76); GLOMERULAR FILTRATION RATE > 60.0 (>39); GLUCOSE, FASTING 134 MG/DL (74-106); HDL CHOLESTEROL 53.7 MG/DL (>40); LDL CHOLESTEROL 75.9 MG/DL (<100); NON-HDL-C 116 MG/DL; POTASSIUM SERUM 4.6 MMOL/L (3.5-5.1); SODIUM LEVEL 139 MMOL/L (136-145); THYROID STIMULATING HORMONE 2.671 uIU/ML (0.55-4.78); TOTAL PROTEIN 7.1 G/DL (5.7-8.2); TRIGLYCERIDES LEVEL 202 MG/DL (<150)
[2022-08-19 15:33] LABS: HEMOGLOBIN A1c 8.2 % (4.0-6.0)
== END ==
LOC: M PLALAB 09:05
PROVIDERS: ATTEND Family Medicine
DX: I10 Essential (primary) hypertension (principal); E11.9 Type 2 diabetes mellitus without complications; E03.9 Hypothyroidism, unspecified

== ENCOUNTER → 2022-08-29 | Outpatient (CLI) | payer MEDICARE, OTHER | LOC: M PLAIMG 13:10 | PROVIDERS: ATTEND Neurological Surgery | DX: G56.03 Carpal tunnel syndrome, bilateral upper limbs (principal) ==

== ENCOUNTER → 2022-10-17 | Outpatient (CLI) | payer MEDICARE, OTHER ==
[~2022-10-17] MED LIST changes: +GLIM2TAB29 PO; -JARD1TAB3; +VITA500T40 PO
== END ==
LOC: M WHC 09:06
PROVIDERS: ATTEND Specialist
DX: Z13.820 Encounter for screening for osteoporosis (principal)

== ENCOUNTER → 2022-12-16 | Outpatient (CLI) | payer MEDICARE, OTHER ==
[2022-12-16 11:16] LABS: BASO # 0.1 10^3/uL (0.0-0.2); BASO % 0.6 % (0.0-1.0); EOS # 0.3 10^3/uL (0.0-0.5); EOS % 4.1 % (0.0-3.0); HEMATOCRIT 44.8 % (36.0-47.0); HEMOGLOBIN 14.2 g/dl (12.0-15.5); LYMPH # 1.9 10^3/uL (1.5-5.0); LYMPH % 24.4 % (24.0-44.0); MEAN CORPUSCULAR HEMOGLOBIN 31.1 pg (27.0-33.0); MEAN CORPUSCULAR HGB CONC 31.7 g/dl (32.0-36.5); MEAN CORPUSCULAR VOLUME 98.2 fl (80.0-96.0); MONO # 0.5 10^3/uL (0.0-0.8); MONO % 6.6 % (2.0-8.0); PLATELET COUNT, AUTOMATED 263 10^3/uL (150-450); RED BLOOD COUNT 4.56 10^6/uL (4.00-5.40); WHITE BLOOD COUNT 7.8 10^3/uL (4.0-10.0)
[2022-12-16 11:28] LABS: HEMOGLOBIN A1c 7.6 % (4.0-6.0)
[2022-12-16 11:49] LABS: ALBUMIN 4.2 G/DL (3.2-5.2); ALKALINE PHOSPHATASE 113 U/L (46-116); ALT/SGPT 34 U/L (7.0-40); AST/SGOT 11 U/L (<34); BILIRUBIN,TOTAL 0.6 MG/DL (0.3-1.2); BLOOD UREA NITROGEN 18 MG/DL (9-23); CALCIUM LEVEL 9.5 MG/DL (8.3-10.6); CARBON DIOXIDE LEVEL 31 MMOL/L (20-31); CHLORIDE LEVEL 104 MMOL/L (98-107); CREATININE FOR GFR 0.49 MG/DL (0.55-1.30); FREE T4 0.91 NG/DL (0.89-1.76); GLOMERULAR FILTRATION RATE > 60.0 (>39); GLUCOSE, FASTING 146 MG/DL (74-106); POTASSIUM SERUM 4.6 MMOL/L (3.5-5.1); PTH INTACT 72.7 PG/ML (18.5-88.0); SODIUM LEVEL 141 MMOL/L (136-145); TOTAL PROTEIN 7.2 G/DL (5.7-8.2)
[2022-12-16 11:50] LABS: THYROID STIMULATING HORMONE 2.227 uIU/ML (0.55-4.78)
[2022-12-16 11:51] LABS: TOTAL 25(OH) VITAMIN D 86.9 NG/ML (20.0-100.0)
[2022-12-16 13:56] LABS: MAU/CREAT RATIO 12.7 MCG/MG (0.0-30.0)
== END ==
LOC: M PLALAB 08:39
PROVIDERS: ATTEND Family Medicine
DX: E55.9 Vitamin D deficiency, unspecified (principal); E11.9 Type 2 diabetes mellitus without complications; Z79.899 Other long term (current) drug therapy

== ENCOUNTER → 2022-12-19 | Outpatient (REF) | payer MEDICARE, OTHER | LOC: M SFHCPLAZ 10:36 | PROVIDERS: ATTEND Family Medicine | DX: E11.9 Type 2 diabetes mellitus without complications (principal); E53.8 Deficiency of other specified B group vitamins; I10 Essential (primary) hypertension ==

== ENCOUNTER → 2023-02-08 | Outpatient (CLI) | payer MEDICARE, OTHER | LOC: M SLEEP 20:00 | PROVIDERS: ATTEND Nurse Practitioner Family | DX: G47.33 Obstructive sleep apnea (adult) (pediatric) (principal) ==

== ENCOUNTER → 2023-04-04 | Outpatient (CLI) | payer MEDICARE, OTHER ==
[~2023-04-04] MED LIST changes: +CELE0.09 PO; -CELE1CAP9 PO
== END ==
LOC: M PLAIMG 16:14
PROVIDERS: ATTEND Nurse Practitioner Family
DX: M47.814 Spondylosis without myelopathy or radiculopathy, thoracic region (principal)

== ENCOUNTER → 2023-04-20 | Outpatient (CLI) | payer MEDICARE, OTHER ==
[2023-04-20 15:58] LABS: BASO % 0.6 % (0.0-1.0); EOS # 0.3 10^3/uL (0.0-0.5); EOS % 5.1 % (0.0-3.0); HEMATOCRIT 42.5 % (36.0-47.0); HEMOGLOBIN 13.6 g/dl (12.0-15.5); LYMPH # 1.6 10^3/uL (1.5-5.0); LYMPH % 25.8 % (24.0-44.0); MEAN CORPUSCULAR HEMOGLOBIN 32.2 pg (27.0-33.0); MEAN CORPUSCULAR VOLUME 100.5 fl (80.0-96.0); MONO # 0.6 10^3/uL (0.0-0.8); MONO % 9.6 % (2.0-8.0); NEUTROPHILS # 3.7 10^3/uL (1.5-8.5); NEUTROPHILS % 58.7 % (36.0-66.0); PLATELET COUNT, AUTOMATED 236 10^3/uL (150-450); RED BLOOD COUNT 4.23 10^6/uL (4.00-5.40); WHITE BLOOD COUNT 6.2 10^3/uL (4.0-10.0)
[2023-04-20 16:11] LABS: HEMOGLOBIN A1c 6.8 % (4.0-6.0)
[2023-04-20 16:30] LABS: ALKALINE PHOSPHATASE 111 U/L (46-116); ALT/SGPT 37 U/L (7.0-40); AST/SGOT 25 U/L (<34); BILIRUBIN,TOTAL 0.8 MG/DL (0.3-1.2); BLOOD UREA NITROGEN 15 MG/DL (9-23); CALCIUM LEVEL 9.2 MG/DL (8.3-10.6); CARBON DIOXIDE LEVEL 32 MMOL/L (20-31); CHLORIDE LEVEL 104 MMOL/L (98-107); CREATININE FOR GFR 0.49 MG/DL (0.55-1.30); FERRITIN 326.3 NG/ML (7.3-270.7); GLOMERULAR FILTRATION RATE > 60.0 (>39); GLUCOSE, FASTING 115 MG/DL (74-106); POTASSIUM SERUM 4.7 MMOL/L (3.5-5.1); SODIUM LEVEL 143 MMOL/L (136-145); VITAMIN B12 LEVEL 860 PG/ML (211-911)
== END ==
LOC: M PLALAB 08:56
PROVIDERS: ATTEND Family Medicine
DX: E11.9 Type 2 diabetes mellitus without complications (principal); E53.8 Deficiency of other specified B group vitamins; I10 Essential (primary) hypertension

== ENCOUNTER → 2023-04-21 | Outpatient (REF) | payer MEDICARE, OTHER | LOC: M SFHCPLAZ 17:14 | PROVIDERS: ATTEND Family Medicine | DX: E03.9 Hypothyroidism, unspecified (principal); I10 Essential (primary) hypertension; E11.9 Type 2 diabetes mellitus without complications ==

== ENCOUNTER → 2023-11-29 | Day surgery (SDC) | payer MEDICARE, OTHER ==
[~2023-11-29] VITALS: Ht 154.9 cm; Wt 86.2 kg
[~2023-11-29] MED LIST changes: +GABA-1171 PO; +LEVO50TA5 PO; +NS 1,000 ML IV ONE; +SEMA1PEN2 SC; +VITA200020 PO
== END | disposition home or self-care (01) ==
LOC: M OPP 12:42
PROVIDERS: ATTEND Internal Medicine Gastroenterology
DX: Z12.11 Encounter for screening for malignant neoplasm of colon (principal); Z53.8 Procedure and treatment not carried out for other reasons

== ENCOUNTER 2023-12-18 11:53 | Day surgery (SDC) | payer MEDICARE, OTHER ==
[~2023-12-18] VITALS: Ht 154.9 cm; Wt 83.9 kg
[2023-12-18] MEDS ORDERED: propofoL 200 MG/20 ML VIAL As Ordered ONE (12:56)
[2023-12-18] MEDS ORDERED: LIDOCAINE 2% 100MG/5ML SDV (FOR ANES.) As Ordered ONE (12:56)
[2023-12-18 14:03] VITALS: TEMP 98
[2023-12-18 14:21] VITALS: BP 155/70; O2SAT 97
== END 2023-12-18 14:02 | disposition home or self-care (01) ==
LOC: M OPP 11:53
PROVIDERS: ATTEND Internal Medicine Gastroenterology
DX: Z12.11 Encounter for screening for malignant neoplasm of colon (principal); K64.0 First degree hemorrhoids; E11.9 Type 2 diabetes mellitus without complications; G47.30 Sleep apnea, unspecified; Z99.89 Dependence on other enabling machines and devices; I10 Essential (primary) hypertension; E03.9 Hypothyroidism, unspecified; Z79.02 Long term (current) use of antithrombotics/antiplatelets; Z79.1 Long term (current) use of non-steroidal anti-inflammatories (NSAID); Z79.2 Long term (current) use of antibiotics; Z79.52 Long term (current) use of systemic steroids; Z79.84 Long term (current) use of oral hypoglycemic drugs; Z79.890 Hormone replacement therapy; Z79.891 Long term (current) use of opiate analgesic; Z79.899 Other long term (current) drug therapy

== ENCOUNTER → 2024-02-08 | Outpatient (CLI) | payer MEDICARE, OTHER ==
[~2024-02-08] MED LIST changes: -NS 1,000 ML IV ONE
[2024-02-08 10:50] LABS: BASO # 0.1 10^3/uL (0.0-0.2); BASO % 0.7 % (0.0-1.0); EOS # 0.3 10^3/uL (0.0-0.5); EOS % 4.5 % (0.0-3.0); HEMATOCRIT 43.4 % (36.0-47.0); LYMPH # 1.7 10^3/uL (1.5-5.0); MEAN CORPUSCULAR HEMOGLOBIN 31.5 pg (27.0-33.0); MEAN CORPUSCULAR HGB CONC 32.3 g/dl (32.0-36.5); MEAN CORPUSCULAR VOLUME 97.5 fl (80.0-96.0); MONO # 0.6 10^3/uL (0.0-0.8); MONO % 7.4 % (2.0-8.0); NEUTROPHILS # 4.9 10^3/uL (1.5-8.5); NEUTROPHILS % 65.1 % (36.0-66.0); PLATELET COUNT, AUTOMATED 247 10^3/uL (150-450); RED BLOOD COUNT 4.45 10^6/uL (4.00-5.40); WHITE BLOOD COUNT 7.6 10^3/uL (4.0-10.0)
[2024-02-08 10:53] LABS: IRON (FE) 50 UG/DL (50-170); PERCENT SATURATION 17.3 % (13.2-45.0); TOTAL IRON BINDING CAPACITY 289 UG/DL (250-425)
[2024-02-08 10:54] LABS: ALBUMIN 4.2 G/DL (3.2-5.2); ALKALINE PHOSPHATASE 112 U/L (46-116); ALT/SGPT 32 U/L (7.0-40); AST/SGOT 17 U/L (<34); BILIRUBIN,TOTAL 0.9 MG/DL (0.3-1.2); BLOOD UREA NITROGEN 19 MG/DL (9-23); CALCIUM LEVEL 9.6 MG/DL (8.3-10.6); CARBON DIOXIDE LEVEL 29 MMOL/L (20-31); CHLORIDE LEVEL 107 MMOL/L (98-107); CHOLESTEROL LEVEL 152 MG/DL (<200); CHOLESTEROL RISK RATIO 3.36 (<5); CREATININE FOR GFR 0.51 MG/DL (0.55-1.30); GLOMERULAR FILTRATION RATE > 60.0 (>39); GLUCOSE, FASTING 139 MG/DL (74-106); HDL CHOLESTEROL 45.2 MG/DL (>40); LDL CHOLESTEROL 63.2 MG/DL (<100); NON-HDL-C 106.8 MG/DL; POTASSIUM SERUM 4.7 MMOL/L (3.5-5.1); SODIUM LEVEL 141 MMOL/L (136-145); TOTAL PROTEIN 7.4 G/DL (5.7-8.2); TRIGLYCERIDES LEVEL 218 MG/DL (<150)
[2024-02-08 10:55] LABS: FREE T4 1.03 NG/DL (0.89-1.76)
[2024-02-08 10:56] LABS: FERRITIN 328.7 NG/ML (7.3-270.7); THYROID STIMULATING HORMONE 1.699 uIU/ML (0.55-4.78)
[2024-02-08 11:15] LABS: CREATININE, URINE 70.2 MG/DL; HEMOGLOBIN A1c 7.2 % (4.0-6.0); MAU/CREAT RATIO 7.1 MCG/MG (0.0-30.0)
== END ==
LOC: M PLALAB 08:17
PROVIDERS: ATTEND Family Medicine
DX: I10 Essential (primary) hypertension (principal); E11.9 Type 2 diabetes mellitus without complications

== ENCOUNTER → 2024-03-30 | Outpatient (REF) | payer MEDICARE, OTHER ==
[2024-03-30 17:23] LABS: APPEARANCE, URINE CLOUDY (CLEAR); BACTERIA, URINE AUTO NEGATIVE (NEGATIVE); BILIRUBIN, URINE AUTO NEGATIVE (NEGATIVE); BLOOD, URINE BLOOD 3+ (NEGATIVE); COLOR, URINE YELLOW (YELLOW); GLUCOSE, URINE (UA) AUTO 3+ mg/dL (NEGATIVE); KETONE, URINE AUTO NEGATIVE (NEGATIVE); LEUKOCYTE ESTERASE, URINE AUTO 3+ (NEGATIVE); NITRITE, URINE AUTO POSITIVE (NEGATIVE); PROTEIN, URINE AUTO 1+ mg/dL (NEGATIVE); RBC, URINE AUTO 0 /HPF (0-3); SPECIFIC GRAVITY URINE AUTO 1.029 (1.002-1.035); SQUAMOUS EPITHELIAL CELL UR AU 0 /HPF (0-6); UROBILINOGEN, URINE AUTO 0.2 mg/dL (0.0-2.0); WBC, URINE AUTO TNTC /HPF (0-3)
== END ==
LOC: M LAB REF 16:55
PROVIDERS: ATTEND Physician Assistant Medical
DX: N39.0 Urinary tract infection, site not specified (principal)

== ENCOUNTER → 2024-05-21 | Outpatient (REF) | payer MEDICARE, OTHER | LOC: M SFHCPLAZ 12:43 | PROVIDERS: ATTEND Physician Assistant Medical | DX: J06.9 Acute upper respiratory infection, unspecified (principal) ==

== ENCOUNTER → 2024-06-03 | Outpatient (REF) | payer MEDICARE, OTHER | LOC: M SFHCPLAZ 12:40 | PROVIDERS: ATTEND Physician Assistant Medical | DX: N76.0 Acute vaginitis (principal) ==

== ENCOUNTER → 2024-06-03 | Outpatient (CLI) | payer MEDICARE, OTHER ==
[2024-06-03 13:32] LABS: BLOOD UREA NITROGEN 24 MG/DL (9-23); GLOMERULAR FILTRATION RATE > 60.0 (>39)
== END ==
LOC: M PLALAB 09:50
PROVIDERS: ATTEND Otolaryngology
DX: R13.10 Dysphagia, unspecified (principal)

== ENCOUNTER → 2024-06-05 | Outpatient (CLI) | payer MEDICARE, OTHER ==
[~2024-06-05] MED LIST changes: +E-Z-GAS II EFFERVESCENT PACKET (SODIUM BICARB./CITRIC ACID/SIMETHICONE) As Ordered ONE; +E-Z-HD 98% w/w 340GM SUSP BTL As Ordered ONE; +E-Z-PAQUE 96% w/w SUSP 176GM BTL As Ordered ONE; +ISOVUE-370 76% 100ML VIAL As Ordered ONE
== END ==
LOC: M RAD 07:35
PROVIDERS: ATTEND Otolaryngology
DX: F45.8 Other somatoform disorders (principal); E04.1 Nontoxic single thyroid nodule
CPT/HCPCS: 70491; 74220; Q9967

== ENCOUNTER → 2024-06-21 | Outpatient (CLI) | payer MEDICARE, OTHER ==
[~2024-06-21] MED LIST changes: -E-Z-GAS II EFFERVESCENT PACKET (SODIUM BICARB./CITRIC ACID/SIMETHICONE) As Ordered ONE; -E-Z-HD 98% w/w 340GM SUSP BTL As Ordered ONE; -E-Z-PAQUE 96% w/w SUSP 176GM BTL As Ordered ONE; -ISOVUE-370 76% 100ML VIAL As Ordered ONE
[2024-06-21 10:28] LABS: BASO % 0.5 % (0.0-1.0); EOS # 0.4 10^3/uL (0.0-0.5); EOS % 5.2 % (0.0-3.0); HEMATOCRIT 43.3 % (36.0-47.0); HEMOGLOBIN 13.9 g/dl (12.0-15.5); LYMPH # 1.7 10^3/uL (1.5-5.0); MEAN CORPUSCULAR HEMOGLOBIN 31.5 pg (27.0-33.0); MEAN CORPUSCULAR HGB CONC 32.1 g/dl (32.0-36.5); MEAN CORPUSCULAR VOLUME 98.2 fl (80.0-96.0); MONO # 0.5 10^3/uL (0.0-0.8); MONO % 6.6 % (2.0-8.0); NEUTROPHILS # 4.9 10^3/uL (1.5-8.5); NEUTROPHILS % 64.4 % (36.0-66.0); PLATELET COUNT, AUTOMATED 251 10^3/uL (150-450); RED BLOOD COUNT 4.41 10^6/uL (4.00-5.40); WHITE BLOOD COUNT 7.5 10^3/uL (4.0-10.0)
[2024-06-21 10:46] LABS: ALBUMIN 3.9 G/DL (3.2-5.2); ALKALINE PHOSPHATASE 114 U/L (35-104); ALT/SGPT 34 U/L (7.0-40); AST/SGOT 17 U/L (<34); BILIRUBIN,TOTAL 0.6 MG/DL (0.3-1.2); BLOOD UREA NITROGEN 23 MG/DL (9-23); CALCIUM LEVEL 10.1 MG/DL (8.3-10.6); CARBON DIOXIDE LEVEL 30 MMOL/L (20-31); CHLORIDE LEVEL 104 MMOL/L (98-107); CREATININE FOR GFR 0.49 MG/DL (0.55-1.30); GLOMERULAR FILTRATION RATE > 60.0 (>39); GLUCOSE, FASTING 149 MG/DL (74-106); POTASSIUM SERUM 4.4 MMOL/L (3.5-5.1); PTH INTACT 57.8 PG/ML (18.5-88.0); SODIUM LEVEL 142 MMOL/L (136-145); THYROID STIMULATING HORMONE 1.939 uIU/ML (0.55-4.78); TOTAL 25(OH) VITAMIN D 89.8 NG/ML (20.0-100.0); TOTAL PROTEIN 7.6 G/DL (5.7-8.2); VITAMIN B12 LEVEL 956 PG/ML (211-911)
[2024-06-21 10:47] LABS: FREE T4 0.97 NG/DL (0.89-1.76); HEMOGLOBIN A1c 7.6 % (4.0-6.0)
== END ==
LOC: M PLALAB 08:43
PROVIDERS: ATTEND Family Medicine
DX: E03.9 Hypothyroidism, unspecified (principal); E11.9 Type 2 diabetes mellitus without complications; I10 Essential (primary) hypertension; E55.9 Vitamin D deficiency, unspecified; E53.8 Deficiency of other specified B group vitamins

== ENCOUNTER → 2024-07-22 | Outpatient (CLI) | payer MEDICARE, OTHER | LOC: M RAD 14:17 | PROVIDERS: ATTEND Physician Assistant Medical | DX: E04.1 Nontoxic single thyroid nodule (principal) ==

== ENCOUNTER 2024-07-31 23:59 | Emergency (ER) | payer MEDICARE, OTHER ==
[~2024-07-31] VITALS: Ht 154.9 cm; Wt 84.1 kg
[2024-08-01 08:15] VITALS: BP 169/80; TEMP 97.5; O2SAT 98
== END 2024-08-01 08:32 | disposition home or self-care (01) ==
LOC: M ED 23:59
DX: G56.02 Carpal tunnel syndrome, left upper limb (principal); M79.602 Pain in left arm; E11.9 Type 2 diabetes mellitus without complications; I10 Essential (primary) hypertension; Z79.02 Long term (current) use of antithrombotics/antiplatelets; Z79.899 Other long term (current) drug therapy; Z79.4 Long term (current) use of insulin

== ENCOUNTER → 2024-10-21 | Outpatient (CLI) | payer MEDICARE, OTHER | LOC: M WHC 11:32 | PROVIDERS: ATTEND Internal Medicine Medical Oncology | DX: C50.919 Malignant neoplasm of unspecified site of unspecified female breast (principal); M85.80 Other specified disorders of bone density and structure, unspecified site ==

== ENCOUNTER → 2025-01-07 | Outpatient (CLI) | payer MEDICARE, OTHER ==
[2025-01-07 15:03] LABS: BASO # 0.1 10^3/uL (0.0-0.2); BASO % 0.7 % (0.0-1.0); EOS # 0.3 10^3/uL (0.0-0.5); EOS % 3.8 % (0.0-3.0); LYMPH # 1.6 10^3/uL (1.5-5.0); LYMPH % 20.2 % (24.0-44.0); MONO # 0.5 10^3/uL (0.0-0.8); MONO % 6.5 % (2.0-8.0); NEUTROPHILS # 5.3 10^3/uL (1.5-8.5); NEUTROPHILS % 68.4 % (36.0-66.0); PLATELET COUNT, AUTOMATED 291 10^3/uL (150-450)
[2025-01-07 15:18] LABS: ESTIMATED AVERAGE GLUCOSE 143.0 MG/DL (60-110)
[2025-01-07 15:31] LABS: ALT/SGPT 22 U/L (7.0-40); AST/SGOT 18 U/L (<34); CALCIUM LEVEL 9.5 MG/DL (8.3-10.6); CARBON DIOXIDE LEVEL 31 MMOL/L (20-31); CHLORIDE LEVEL 100 MMOL/L (98-107); CHOLESTEROL LEVEL 158 MG/DL (<200); CHOLESTEROL RISK RATIO 3.19 (<5); CREATININE FOR GFR 0.52 MG/DL (0.55-1.30); FREE T4 1.06 NG/DL (0.89-1.76); GLOMERULAR FILTRATION RATE > 90.0 (>39); LDL CHOLESTEROL 75.6 MG/DL (<100); NON-HDL-C 108.6 MG/DL; POTASSIUM SERUM 4.6 MMOL/L (3.5-5.1); PTH INTACT 75.7 PG/ML (18.5-88.0); SODIUM LEVEL 142 MMOL/L (136-145); TRIGLYCERIDES LEVEL 165 MG/DL (<150); VITAMIN B12 LEVEL 722 PG/ML (211-911)
[2025-01-07 15:32] LABS: TOTAL 25(OH) VITAMIN D 122.9 NG/ML (20.0-100.0)
== END ==
LOC: M PLALAB 09:20
PROVIDERS: ATTEND Family Medicine
DX: I10 Essential (primary) hypertension (principal); L64.9 Androgenic alopecia, unspecified; E03.9 Hypothyroidism, unspecified; E11.9 Type 2 diabetes mellitus without complications; E78.2 Mixed hyperlipidemia; E53.8 Deficiency of other specified B group vitamins; K76.0 Fatty (change of) liver, not elsewhere classified; Z79.899 Other long term (current) drug therapy

== ENCOUNTER → 2025-04-09 | Outpatient (CLI) | payer MEDICARE, OTHER | LOC: M PLAIMG 15:51 | PROVIDERS: ATTEND Nurse Practitioner Family | DX: R10.A2 Flank pain, left side (principal) ==

== ENCOUNTER → 2025-05-19 | Outpatient (CLI) | payer MEDICARE, OTHER ==
[2025-05-19 13:24] LABS: BASO # 0.0 10^3/uL (0.0-0.2); BASO % 0.5 % (0.0-1.0); EOS # 0.3 10^3/uL (0.0-0.5); EOS % 4.6 % (0.0-3.0); LYMPH # 1.5 10^3/uL (1.5-5.0); LYMPH % 24.0 % (24.0-44.0); MONO # 0.5 10^3/uL (0.0-0.8); MONO % 8.4 % (2.0-8.0); NEUTROPHILS # 3.9 10^3/uL (1.5-8.5); NEUTROPHILS % 62.3 % (36.0-66.0); PLATELET COUNT, AUTOMATED 275 10^3/uL (150-450)
[2025-05-19 13:29] LABS: ALT/SGPT 21 U/L (7.0-40); AST/SGOT 17 U/L (<34); CALCIUM LEVEL 9.1 MG/DL (8.3-10.6); CARBON DIOXIDE LEVEL 31 MMOL/L (20-31); CHLORIDE LEVEL 105 MMOL/L (98-107); CHOLESTEROL LEVEL 162 MG/DL (<200); CHOLESTEROL RISK RATIO 3.09 (<5); CREATININE FOR GFR 0.48 MG/DL (0.55-1.30); GLOMERULAR FILTRATION RATE > 90.0 (>39); LDL CHOLESTEROL 75.6 MG/DL (<100); NON-HDL-C 109.6 MG/DL; POTASSIUM SERUM 4.6 MMOL/L (3.5-5.1); SODIUM LEVEL 144 MMOL/L (136-145); TRIGLYCERIDES LEVEL 170 MG/DL (<150)
[2025-05-19 13:30] LABS: PTH INTACT 49.5 PG/ML (18.5-88.0)
[2025-05-19 13:32] LABS: FREE T4 1.00 NG/DL (0.89-1.76); TOTAL 25(OH) VITAMIN D 108.0 NG/ML (20.0-100.0); VITAMIN B12 LEVEL 745 PG/ML (211-911)
[2025-05-19 13:35] LABS: ESTIMATED AVERAGE GLUCOSE 143.0 MG/DL (60-110)
== END ==
LOC: M PLALAB 09:18
PROVIDERS: ATTEND Family Medicine
DX: E53.8 Deficiency of other specified B group vitamins (principal); E78.2 Mixed hyperlipidemia; I10 Essential (primary) hypertension; E03.9 Hypothyroidism, unspecified; E11.9 Type 2 diabetes mellitus without complications; E55.9 Vitamin D deficiency, unspecified; K76.0 Fatty (change of) liver, not elsewhere classified

== ENCOUNTER → 2025-05-30 | Outpatient (CLI) | payer MEDICARE, OTHER | LOC: M PLAIMG 11:19 | PROVIDERS: ATTEND Family Medicine | DX: M48.062 Spinal stenosis, lumbar region with neurogenic claudication (principal); M47.816 Spondylosis without myelopathy or radiculopathy, lumbar region; M47.814 Spondylosis without myelopathy or radiculopathy, thoracic region ==